=== PATIENT | male | born 1945 | race Caucasian/White ===

== ENCOUNTER 2016-11-28 13:08 | Inpatient (IN) | payer MEDICARE ==
[2016-11-28] MEDS ORDERED: NS 0.9% 1000 ML* 1,000 ML IV ONE ×3 (13:17→14:28)
[2016-11-28] MEDS ORDERED: Ondansetron INJ* 2 MG/ML VIAL IV ONE (13:27)
[2016-11-28 13:37] LABS: Hematocrit 43 % (42-52); Hemoglobin 14.7 g/dl (14.0-18.0); Mean Corpuscular HGB Conc 34 g/dl (31-36); Mean Corpuscular Hemoglobin 32 pg (27-31); Mean Corpuscular Volume 94 fL (80-94); Mean Platelet Volume 8 um3 (7.4-10.4); Red Blood Count 4.57 10^6/ul (4.0-5.4); Red Cell Distribution Width 13 % (10.5-15); White Blood Count 1.9 10^3/ul (3.5-10.8)
--- NOTE | 2016-11-28 13:39 | RAD ---
HISTORY: Cough, abdominal pain COMPARISONS: None VIEWS:1: Single frontal portable view of the chest at 1:25 PM FINDINGS: LINES AND TUBES: None. CARDIOMEDIASTINAL SILHOUETTE: The cardiomediastinal silhouette is normal for portable technique. PLEURA: The costophrenic angles are sharp. No pleural abnormalities are noted. LUNG PARENCHYMA: The lungs are clear. ABDOMEN: The upper abdomen is clear. There is no subphrenic gas. BONES AND SOFT TISSUES: No bone or soft tissue abnormalities are noted. IMPRESSION: NO ACTIVE CARDIOPULMONARY DISEASE.
[2016-11-28 13:40] LABS: Add Diff/Slide Review? Slide Review Added; Comments Flag Yes
[2016-11-28 14:13] LABS: Troponin I 0.06 ng/mL (<0.04)
[2016-11-28 14:18] LABS: C Reactive Protein 101.81 mg/L (< 5.00); Calcium 9.3 mg/dL (8.6-10.3); EGFR African American 44.4 (>60); EGFR Non-African American 34.5 (>60); Globulin 2.4 g/dL (2-4); Total Bilirubin 4.4 mg/dL (0.2-1.0); Total Protein 6.4 g/dL (6.4-8.9)
[2016-11-28 14:22] LABS: Potassium 2.7 mmol/L (3.5-5.0)
[2016-11-28 14:23] LABS: Urine Bacteria Absent (Absent); Urine Bilirubin Negative (Negative); Urine Glucose Negative (Negative); Urine Nitrite Negative (Negative)
[2016-11-28] MEDS ORDERED: Ketorolac INJ* 30 MG/ML 1 ML VIAL IV ONE (15:00)
[2016-11-28] MEDS: KCL 20 MEQ/100 ML IVPREMIX* 20 MEQ/100 ML BAG IV SCH ×4 (15:01→20:56)
--- NOTE | 2016-11-28 15:10 | RAD ---
HISTORY: Cholangitis COMPARISONS: None TECHNIQUE: Multiple transverse and longitudinal ultrasound images were obtained of the right upper quadrant of the abdomen using grayscale and color Doppler imaging. FINDINGS: LIVER: The liver is normal in shape, size, contour, and echogenicity. There are no focal parenchymal masses. There is normal hepatopedal flow of the portal vein on Doppler imaging. BILIARY TREE: There is no intrahepatic or extrahepatic biliary dilatation. The common duct measures 0.7 cm. GALLBLADDER: There is sludge noted within the gallbladder. There is no pericholecystic fluid or sonographic Perla sign. PANCREAS: The pancreas is obscured by overlying bowel gas. RIGHT KIDNEY: There are multiple simple and septated cysts of the right kidney There is no appreciable hydronephrosis or nephrolithiasis. The right kidney measures 13.9 x 6.7 x 9.6 cm. AORTA AND IVC: The aorta and IVC are unremarkable. FLUID: There are no pleural effusions. There is no free fluid within the hepatorenal recess. OTHER FINDINGS: None. IMPRESSION: SLUDGE IS NOTED WITHIN THE GALLBLADDER. MULTIPLE RENAL CYSTS
--- NOTE | 2016-11-28 15:56 | RAD ---
CLINICAL HISTORY: Rule out cholangitis COMPARISON: Ultrasound dated November 28, 2016 TECHNIQUE: Multiple contiguous axial CT scans were obtained of the abdomen and pelvis, without intravenous contrast enhancement. Coronal and sagittal multiplanar reformations are submitted for review. Oral contrast was not administered. FINDINGS: The study is limited by the lack of intravenous contrast. This limits evaluation of the solid organs and vasculature. LUNG BASES: There are trace bilateral pleural effusions. LIVER: The liver is normal in shape, size, contour, and attenuation. BILE DUCTS: There is no intrahepatic or extrahepatic biliary dilatation. GALLBLADDER: The gallbladder is normal, without pericholecystic inflammatory change. PANCREAS: There is stranding of the peripancreatic fat with mild edema of the pancreatic head SPLEEN: Normal in size and appearance. UPPER GI TRACT: Evaluation of the gastrointestinal tract is limited by incomplete gastric distention. The upper GI tract is unremarkable. SMALL BOWEL AND MESENTERY: The small bowel is normal in contour, course, and caliber. There is no obstruction or dilatation. COLON: The colon is normal in contour, course, caliber. There is no pericolonic inflammatory change. ADRENALS: Normal bilaterally. KIDNEYS: There are multiple simple and septated cysts of the kidneys bilaterally, including calcified septations. There is a 0.4 cm calculus of lower pole of the right kidney. There is no appreciable hydronephrosis. BLADDER: The bladder is incompletely distended. A Fagan catheter is noted. PELVIC ORGANS: The prostate gland is normal. The seminal vesicles are symmetric. AORTA: There is calcific atherosclerotic disease of the abdominal aorta and its branches, without aneurysmal dilatation IVC: Unremarkable LYMPH NODES: There is no lymphadenopathy by size criteria. ABDOMINAL WALL: There is no evidence for abdominal wall hernia. BONES AND SOFT TISSUES: There are mild diffuse degenerative changes. OTHER: None IMPRESSION: 1. PERIPANCREATIC INFLAMMATORY CHANGE SUGGESTIVE OF EARLY PANCREATITIS IN THE CORRECT CLINICAL SETTING. 2. TRACE BILATERAL PLEURAL EFFUSIONS. 3. MULTIPLE SIMPLE AND SEPTATED RENAL CYSTS. RECOMMEND FURTHER EVALUATION WITH MULTIPHASE CONTRAST-ENHANCED RENAL PROTOCOL CT OR CONTRAST ENHANCED MRI IN THE NONACUTE SETTING. 4. NONOBSTRUCTING RIGHT RENAL CALYCEAL STONE
--- NOTE | 2016-11-28 16:53 | ED ---
Paolo Alatorre Auryana, scribed for Leonardo Amor MD on 11/28/16 at 1337 . Abdominal Pain/Male - HPI Summary HPI Summary: 71 year old male presents with abdominal pain starting last night and syncopal episode today. The pain is located in the LLQ that radiates to the back. The pain is characterized a a sharp pain. Patient reports fever, chills, diaphoresis , and nausea - patient vomited on arrival. also reports couldn't walk last night due to the pain. He denies cough, dysuria and burning with urination. Reports last BM - yesterday. Food aggravates the pain. PMHx is significant for HLD, hiatal hernia, HTN, GERD, and appendectomy. SHx is significant for alcohol use (daily), but denies any tobacco or recreational drug use. - History of Current Complaint Chief Complaint: EDSyncope Stated Complaint: ABD PAIN Time Seen by Provider: 11/28/16 13:17 Hx Obtained From: Patient, Family/Patternator - Hx From Patient Unobtainable Due To: Other Onset/Duration: Gradual Onset, Lasting Days - 1, Still Present Timing: Constant Severity Initially: Mild Severity Currently: Mild Pain Intensity: 2 Pain Scale Used: 0-10 Numeric Location: Diffuse Radiates: Yes Radiates to: Back Character: Sharp Aggravating Factor(s): Movement Associated Signs And Symptoms: Positive: Diaphoresis, Fever, Back Pain, Nausea, Vomiting. Negative: Cough, Urinary Symptoms - Allergies/Home Medications Allergies/Adverse Reactions: Allergies Allergy/AdvReac Type Severity Reaction Status Date / Time No Known Allergies Allergy Verified 11/28/16 13:25 Home Medications: Home Medications Amlodipine Besylate [Norvasc 5 mg tab] 5 mg PO DAILY 11/28/16 [History Confirmed 11/28/16] Arginine [[id number]] 1,000 mg PO BID 11/28/16 [History Confirmed 11/28/16] Aspirin [Aspirin 81 MG TAB] 81 mg PO DAILY 11/28/16 [History Confirmed 11/28/16] Atorvastatin* [Lipitor 80 MG*] 80 mg PO DAILY 11/28/16 [History Confirmed ] Benazepril HCl [Lotensin] 10 mg PO DAILY 11/28/16 [History Confirmed 11/28/16] Calcium 1,000 mg PO BID 11/28/16 [History Confirmed 11/28/16] Coenzyme Q10 (Ubidecarenone) [Coq-10] 200 mg PO BID 11/28/16 [History Confirmed 11/28/16] Cyanocobalamin [B-12] 2,000 units PO DAILY 11/28/16 [History Confirmed 11/28/16] Metoprolol Tartrate TAB* [Lopressor TAB*] 200 mg PO DAILY 11/28/16 [History Confirmed 11/28/16] Omeprazole CAP* [Prilosec CAP* 20 MG] 20 mg PO DAILY 11/28/16 [History Confirmed 11/28/16] PMH/Surg Hx/FS Hx/Imm Hx Cardiovascular History: Reports: Hx Hypercholesterolemia, Hx Hypertension GI History: Reports: Hx Gastroesophageal Reflux Disease, Hx Hiatal Hernia - Surgical History Surgery Procedure, Year, and Place: Appendectomy Infectious Disease History: No Infectious Disease History: Denies: Traveled Outside the [place] in Last 30 Days - Family History Known Family History: Positive: Hypertension, Other - aneurysm - aorta (father @ age 72), HLD, [place] Negative: Cardiac Disease, Diabetes - Social History Occupation: Retired Lives: With Family Alcohol Use: Daily Hx Substance Use: No Substance Use Type: Reports: None Hx Tobacco Use: No Smoking Status (MU): Never Smoked Tobacco Review of Systems Positive: Fever, Chills, Skin Diaphoresis Eyes: Negative ENT: Negative Cardiovascular: Negative Respiratory: Negative Negative: Cough Positive: Abdominal Pain - radiating to the back , Vomiting - on arrival to ED, Nausea Genitourinary: Negative Positive: no symptoms reported. Negative: burning, dysuria Musculoskeletal: Negative Skin: Negative Neurological: Negative Psychological: Normal All Other Systems Reviewed And Are Negative: Yes Physical Exam - Summary Physical Exam Summary: Well-appearing, no pain distress Warm, color reflects adequate perfusion, diaphoresis; patient is warm to touch. Nml head/face Nml eyes Nml ENT Neck: Supple, non-tender Cardiovascular: RRR Abd soft, 9/10 left sided abdominal tenderness without bruits Bowel sounds + Nml musculoskeletal Nml neuro, a little slow with mentation. Nml psychiatric, affect/mood appropriate Triage Information Reviewed: Yes Vital Signs On Initial Exam: Initial Vitals Temp Pulse Resp BP Pulse Ox 100.0 F 62 14 148/68 94 11/28/16 13:11 11/28/16 13:11 11/28/16 13:11 11/28/16 13:11 11/28/16 13:11 Vital Signs Reviewed: Yes Diagnostics - Vital Signs Vital Signs Temp Pulse Resp BP Pulse Ox 11/28/16 13:19 95 11/28/16 13:14 100.0 F 102 22 148/68 95 11/28/16 13:11 100.0 F 62 14 148/68 94 - Laboratory Lab Results: Lab Results 11/28/16 11/28/16 11/28/16 Range/Units 13:15 13:15 13:15 WBC 1.9 L (3.5-10.8) 10^3/ul RBC 4.57 (4.0-5.4) 10^6/ul Hgb 14.7 (14.0-18.0) g/dl Hct 43 (42-52) % MCV 94 (80-94) fL MCH 32 H (27-31) pg MCHC 34 (31-36) g/dl RDW 13 (10.5-15) % Plt Count 134 L (150-450) 10^3/ul MPV 8 (7.4-10.4) um3 Neut % (Auto) 81.8 (38-83) % Lymph % (Auto) 17.2 L (25-47) % [place] % (Auto) 0.5 L (1-9) % Eos % (Auto) 0.2 (0-6) % Baso % (Auto) 0.3 (0-2) % Absolute Neuts (auto) 1.6 (1.5-7.7) 10^3/ul Absolute Lymphs (auto) 0.3 L (1.0-4.8) 10^3/ul Absolute Monos (auto) 0 (0-0.8) 10^3/ul Absolute Eos (auto) 0 (0-0.6) 10^3/ul Absolute Basos (auto) 0 (0-0.2) 10^3/ul Absolute Nucleated RBC 0 10^3/ul Nucleated RBC % 0.1 INR (Anticoag Therapy) 1.14 H (0.89-1.11) Sodium 141 (133-145) mmol/L Potassium 2.7 L* (3.5-5.0) mmol/L Chloride 109 (101-111) mmol/L Carbon Dioxide 21 L (22-32) mmol/L Anion Gap 11 (2-11) mmol/L BUN 27 H (6-24) mg/dL Creatinine 1.93 H (0.67-1.17) mg/dL Est GFR ( Amer) 44.4 (>60) Est GFR (Non-Af Amer) 34.5 (>60) BUN/Creatinine Ratio 14.0 (8-20) Glucose 151 H (70-100) mg/dL Lactic Acid (0.5-2.0) mmol/L Calcium 9.3 (8.6-10.3) mg/dL Total Bilirubin 4.40 H (0.2-1.0) mg/dL AST 304 H (13-39) U/L ALT 377 H (7-52) U/L Alkaline Phosphatase 159 H (34-104) U/L Troponin I 0.06 H* (<0.04) ng/mL C-Reactive Protein 101.81 H (< 5.00) mg/L Total Protein 6.4 (6.4-8.9) g/dL Albumin 4.0 (3.2-5.2) g/dL Globulin 2.4 (2-4) g/dL Albumin/Globulin Ratio 1.7 (1-3) Lipase 9671 H (11.0-82.0) U/L Urine Color Urine Appearance Urine pH (5-9) Ur Specific [place] (1.010-1.030) Urine Protein (Negative) Urine Ketones (Negative) Urine Blood (Negative) Urine Nitrate (Negative) Urine Bilirubin (Negative) Urine Urobilinogen (Negative) Ur Leukocyte Esterase (Negative) Urine WBC (Auto) (Absent) Urine RBC (Auto) (Absent) Urine Bacteria (Absent) Granular Casts (Absent) Urine Glucose (Negative) 11/28/16 11/28/16 11/28/16 Range/Units 13:15 13:55 15:29 WBC (3.5-10.8) 10^3/ul RBC (4.0-5.4) 10^6/ul Hgb (14.0-18.0) g/dl Hct (42-52) % MCV (80-94) fL MCH (27-31) pg MCHC (31-36) g/dl RDW (10.5-15) % Plt Count (150-450) 10^3/ul MPV (7.4-10.4) um3 Neut % (Auto) (38-83) % Lymph % (Auto) (25-47) % [place] % (Auto) (1-9) % Eos % (Auto) (0-6) % Baso % (Auto) (0-2) % Absolute Neuts (auto) (1.5-7.7) 10^3/ul Absolute Lymphs (auto) (1.0-4.8) 10^3/ul Absolute Monos (auto) (0-0.8) 10^3/ul Absolute Eos (auto) (0-0.6) 10^3/ul Absolute Basos (auto) (0-0.2) 10^3/ul Absolute Nucleated RBC 10^3/ul Nucleated RBC % INR (Anticoag Therapy) (0.89-1.11) Sodium (133-145) mmol/L Potassium (3.5-5.0) mmol/L Chloride (101-111) mmol/L Carbon Dioxide (22-32) mmol/L Anion Gap (2-11) mmol/L BUN (6-24) mg/dL Creatinine (0.67-1.17) mg/dL Est GFR ( Amer) (>60) Est GFR (Non-Af Amer) (>60) BUN/Creatinine Ratio (8-20) Glucose (70-100) mg/dL Lactic Acid 3.2 H* 3.1 H* (0.5-2.0) mmol/L Calcium (8.6-10.3) mg/dL Total Bilirubin (0.2-1.0) mg/dL AST (13-39) U/L ALT (7-52) U/L Alkaline Phosphatase (34-104) U/L Troponin I (<0.04) ng/mL C-Reactive Protein (< 5.00) mg/L Total Protein (6.4-8.9) g/dL Albumin (3.2-5.2) g/dL Globulin (2-4) g/dL Albumin/Globulin Ratio (1-3) Lipase (11.0-82.0) U/L Urine Color [place] Urine Appearance Cloudy Urine pH 5.0 (5-9) Ur Specific [place] 1.010 (1.010-1.030) Urine Protein 1+(30 mg/dl) H (Negative) Urine Ketones Negative (Negative) Urine Blood 2+ H (Negative) Urine Nitrate Negative (Negative) Urine Bilirubin Negative (Negative) Urine Urobilinogen Negative (Negative) Ur Leukocyte Esterase Negative (Negative) Urine WBC (Auto) Absent (Absent) Urine RBC (Auto) 1+(3-5/hpf) H (Absent) Urine Bacteria Absent (Absent) Granular Casts Present H (Absent) Urine Glucose Negative (Negative) Result Diagrams: 11/28/16 13:15 11/28/16 13:15 Lab Statement: Any lab studies that have been ordered have been reviewed, and results considered in the medical decision making process. - Radiology CXR Xray Interpretation: No Acute Changes - NAD Radiology Interpretation Completed By: Radiologist - CT CT ABD/PEL W/O CT Interpretation: Positive (See Comments) - IMPRESSION: 1. PERIPANCREATIC INFLAMMATORY CHANGE SUGGESTIVE OF EARLY PANCREATITIS IN THE CORRECT CLINICAL SETTING. 2. TRACE BILATERAL PLEURAL EFFUSIONS. 3. MULTIPLE SIMPLE AND SEPTATED RENAL CYSTS. RECOMMEND FURTHER EVALUATION WITH MULTIPHASE 4. NONOBSTRUCTING RIGHT RENAL CALYCEAL STONE CT Interpretation Completed By: Radiologist - EKG 13:12 EKG Interpretation: Sinus Tachy @ 107 BPM, with a few ST depression and PACs - Additional Comments Diagnostic Additional Comments: US GALL BLADDER IMPRESSION: SLUDGE IS NOTED WITHIN THE GALLBLADDER. MULTIPLE RENAL CYSTS Abdominal Pain Fem Course/Dx - Course Course Of Treatment: Mr. Diggs arrived by EMS afebrile (100) with borderline tachycardia after a syncopale episode. He was diaphoretic and mentating slowly. He was equivical about having abdominal and back pain sometimes saying he did and at others denying them. He was given IV fluids while labs and imaging were obtained. He quickly spiked up a fever here and he reported fevers at home for a day or so. His labs returned with a severe sepsis type picture as well as looking like an acute cholangitis and he was ordered zosyn and a GB U/S which was remarkable only for a slightly dilated CBD.. His lipase then returned at 9000. At that point the hospitalists were managing hium and obtained a CT scan. - Diagnoses Provider Diagnoses: Cholangitis, Septic shock, Pancreatitis - Provider Notifications Discussed Care Of Patient With: Jamey Herminia Time Discussed With Above Provider: 14:32 - consulted on treatment here in ED - Critical Care Time Critical Care Time: 30-74 min Discharge - Discharge Plan Condition: Stable Disposition: ADMITTED TO [facility] Referrals: Gino Meredith MD [Primary Care Provider] - The documentation as recorded by the Paolo cazares Auryana accurately reflects the service I personally performed and the decisions made by me, Leonardo Amor MD.
[2016-11-28] MEDS ORDERED: Zosyn per Pharmacy* NOTE FOLLOW UP SCH (17:00)
--- NOTE | 2016-11-28 17:15 | RAD ---
HISTORY: Central line placement COMPARISONS: November 28, 2016 VIEWS:1: Single frontal portable view of the chest at 4:55 PM FINDINGS: LINES AND TUBES: The left internal jugular venous catheter is noted with the tip overlying the expected location of the confluence of the brachiocephalic vein and the superior vena cava CARDIOMEDIASTINAL SILHOUETTE: The cardiomediastinal silhouette is normal for portable technique. PLEURA: The costophrenic angles are sharp. No pleural abnormalities are noted. LUNG PARENCHYMA: The lung volumes are low. There is prominence of the central pulmonary vasculature. ABDOMEN: The upper abdomen is clear. There is no subphrenic gas. BONES AND SOFT TISSUES: No bone or soft tissue abnormalities are noted. IMPRESSION: LINES AND TUBES ABOVE. PULMONARY VASCULAR CONGESTION.
[2016-11-28] MEDS ORDERED: Norepinephrine 16MCG/ML IVPRE* 4,000 MCG/250 ML BAG IV ONE (17:20)
[2016-11-28 17:41] LABS: Venous Bicarbonate HCO3 16.5 mmol/L (24-28)
--- NOTE | 2016-11-28 18:05 | PN ---
Progress Note - Progress Note Date of Service: 11/28/16 Note: Procedure note Emergent left IJ CVC placement Verbal consent obtained from at bedside Site marked with US assistance Cleaned with chlorhexadine Draped in sterile manner 5cc lidocaine used to numb the site Using US guidance left IJ canulated and triple lumen placed over the wire. Location of wire confirmed with US Location confirmed with CXR No complications
[2016-11-28] MEDS ORDERED: NS 0.9% 1000 ML* 2,000 ML IV ONE (19:00)
[2016-11-28] MEDS: NS 0.9% 1000 ML* 1,000 ML IV SCH ×2 (19:29→22:48)
[2016-11-28] MEDS: Hydrocortisone INJ* 100 MG VIAL IV SCH (19:30)
[2016-11-28] MEDS: ZOSYN 3.375 GM Q8H per EXTENDED INFUSION IVPB SCH ×2 (20:00)
[2016-11-28] MEDS: Norepinephrine 16MCG/ML IVPRE* 4,000 MCG/250 ML BAG IV SCH (21:50)
--- NOTE | 2016-11-28 21:59 | HP ---
ADDENDUM: * ADMISSION HISTORY AND PHYSICAL: DATE OF ADMISSION: 11/28/16 Discussed care with slab depiler operator Dr. Hope as well as surgeon Dr. Rodríguez. Added addition of hydrocortisone 100 mg every 8 hours per discussion with Dr. Hope. After discussion with Dr. Rodríguez, she denies and I feel there is surgical intervention warranted at this time. No need for percutaneous drainage of the biliary system in the absence of dilated common biliary duct. A repeat CT of the abdomen and pelvis will be useful with contrast. Lab work as indicated. An H and P is not capable at this time until some improvement in his renal function. [id number]/[facility] #: [id number] MTDD
[2016-11-28] MEDS: Heparin VIAL(*) 5000 UNITS/ML VIAL (FIVE THOUSAND) SUBCUT SCH (22:00)
--- NOTE | 2016-11-28 23:13 | HP ---
ADDENDUM NOW INCLUDED ON THIS REPORT HISTORY AND PHYSICAL: DATE OF ADMISSION: 11/28/16 PRIMARY CARE PROVIDER: Dr. Gino Meredith in [place], [place]. HEALTHCARE PROXY: His . CODE STATUS: Full SOURCE OF INFORMATION: History obtained from interview with patient and mostly his . RELIABILITY: Good. CHIEF COMPLAINT: Abdominal pain. HISTORY OF PRESENT ILLNESS: This is a 71-year-old man with past medical history of CAD, unclear if he has received a stent, possibly stenting 12 years prior, who was in his usual state of health until yesterday morning, suddenly developed abdominal pain that was described as both burning and aching, radiating to his back. Throughout the day, the pain came and went, but progressively got worse. By the end of the day, he ate some watermelon, had some nausea, vomiting, and then felt better. Pain continued overnight and this morning the pain was worse and again with nausea, vomiting, and so his encouraged him to present to the hospital. On presentation to the emergency room, his blood pressure was 148/68. He was still complaining of abdominal pain radiating to his back. The hospitalists service was consulted for admission. During interview with the patient and his , the blood pressure was noted to be declining to systolics 80s despite continued continued fluid administration. After 5 liters of fluid, the patient's blood pressure remained in the 70s and he became confused during our conversation. The conversation was terminated and an emergent central line was placed in his left IJ with verbal consent from his . He received 8 liters of fluid and was transferred to the ICU, where his blood pressures remained in the 70s and Levophed was started. The patient is a steady 2 drink a day (beer or wine) drinker without escalation but does relay that on November 23 he drank much more than usual (1 bottle of wine and maybe 1-2 beers) so much so that he "took the day off" November 24. He denies any recent symptoms of abdominal pain prior to this episode. PAST MEDICAL HISTORY: 1. CAD, question of stenting 12 years prior. The patient reports he did not have a stent, reported that she thought he had a stent. 2. Hypertension. 3. Hyperlipidemia. 4. FAMIILA, on CPAP. 5. Hiatal hernia. 6. Appendectomy. MEDICATION RECONCILIATION: In the computer is correct: 1. Atorvastatin 80 mg daily. 2. Aspirin 81 mg daily. 3. Arginine 1000 mg twice daily. 4. Amlodipine 5 mg daily. 5. Co-enzyme Q10 200 mg twice daily. 6. Calcium 1000 mg twice daily. 7. Benazepril 10 mg daily. 8. Omeprazole 20 mg daily. 9. Metoprolol tartrate 200 mg daily. 10. Cyanocobalamin. 11. Vitamin B12 2000 units daily. ALLERGIES: No known drug allergies. FAMILY HISTORY: No history of pancreatitis. Mother with brain cancer. Father with an aortic aneurysm. SOCIAL HISTORY: He lives in [place]. 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 No history of tobacco. Two drinks a day, but did not drink more recently. He drinks consistently. REVIEW OF SYSTEMS: As per HPI including abdominal pain, nausea, vomiting since yesterday. PHYSICAL EXAMINATION VITAL SIGNS: When seen by this author 83/54, heart rate of 102, respiratory rate of 16, T-max in the emergency room 102.7. gen: nad, lethargic HEENT: OP clear, dry mm Neck: non elevated JVD, no CHRISTIAN CV: tachy, no mrg pulm: CTAB abd: soft, patient does not indicate tenderness but is increasingly lethargic during exam ext: warm, well perfused, poor cap refill neuro: originally AOX3 but increasingly lethargic LABORATORY DATA AND DIAGNOSTIC STUDIES: Pertinent Labs: White blood cell count 1.9, 81% neutrophils, INR is 1.14, potassium 2.7, BUN 27, creatinine 1.94 , glucose 151, lactic acid 3.2, remained 3.1 after 2 liter bolus, total bilirubin of 4.4, unfractionated AST 304, ALT 377, alk phos 159, troponin I 0.06 , CRP 101, lipase 967. Urinalysis is positive for blood and granular casts. Gallbladder ultrasound - sludge is noted within the gallbladder, multiple renal cysts. CT of the abdomen and pelvis without contrast due to the patient's renal insufficiency and inability to tolerate p.o. - Impression: Peripancreatic inflammatory changes suggestive of early pancreatitis in the correct clinical setting. Trace bilateral pleural effusions. Multiple simple and septated renal cysts. Recommend followup multiphase contrast, enhanced renal protocol CT or contrast-enhanced MRI in the non-acute setting. Non- obstructing right renal calyceal stone. EKG on presentation - sinus tachycardia with PACs, ventricular rate 107, normal limit axis and intervals, normal R-wave progression, ST or T-wave inversions V4 through V6, leads I, II, III and aVL, T waves, ST depression in V4, V5 and V6, as well as lead I. Repeat EKG 4 hours later - sinus tachycardia, ventricular rate of 98, normal limit axis, T-wave inversions in V2 and V3, have corrected ST depressions continue V3, V4, V5, V6 and lead II. ASSESSMENT AND PLAN: This is a 71-year-old man with past medical history of obstructive sleep apnea and coronary artery disease, presenting to the hospital with abdominal pain, laboratory and imaging evidence concerning for pancreatitis. 1. Shock acute, distributive, potentially component of septic. Early pancreatitis, status post 8 liters with maps in the 50s requiring Levophed. Could be component of cholangitis/septic shock. We will continue Zosyn until blood cultures remain negative. Repeat LFTs tomorrow. Monitor bilirubin with fractionated portion. Continue to trend lactic acid until stable and declining. Continue fluids at 300 cc per hour in conjunction with Levophed, monitor urine output. 2. Hhb-XQ-ensqqxes myocardial infarction: I suspect type 2 demand mediated in the setting of hypotension. We will trend troponins now. Plan for transthoracic echocardiogram when available tomorrow. Continue baby aspirin, hold metoprolol. 3. Kidney dysfunction or acute kidney failure: No prior records to compare current values to. There is fluid hydration. Casts noted in urinalysis, concerning for ATN. 4. Hypokalemia: Receiving IV potassium repletion. Recheck BMP this evening. 5. Transaminitis: Suspect in the setting of pancreatitis; however, the patient may have passed the stone or this may represent continued cholangitis. Antibiotics as indicated above, recheck tomorrow. 6. Obstructive sleep apnea: Continue with CPAP while hospitalized. 7. Pancreatitis: Suspect contributing to shock. Maintain n.p.o. Pain control with morphine, vigorous hydration. I discussed potential need for intubation with the patient's , she agrees should volume resuscitate, mechanical support. 8. DVT prophylaxis, heparin subcu. 9. Code status is full. ADDENDUM: ADMISSION HISTORY AND PHYSICAL: DATE OF ADMISSION: 11/28/16 Discussed care with stereotype finisher Dr. Hope as well as surgeon Dr. Rodríguez. Added addition of hydrocortisone 100 mg every 8 hours per discussion with Dr. Hope. After discussion with Dr. Rodríguez, she denies and I feel there is surgical intervention warranted at this time. No need for percutaneous drainage of the biliary system in the absence of dilated common biliary duct. A repeat CT of the abdomen and pelvis will be useful with contrast. Lab work as indicated. An H and P is not capable at this time until some improvement in his renal function. [id number]/[facility] #: [id number]/[facility] #: [id number] MTDD
[2016-11-28 23:36] LABS: BUN/Creatinine Ratio 14.8 (8-20); Calcium 6.7 mg/dL (8.6-10.3); EGFR African American 43.6 (>60); EGFR Non-African American 33.9 (>60); Potassium 3.6 mmol/L (3.5-5.0)
[2016-11-29] MEDS: Norepinephrine 16MCG/ML IVPRE* 4,000 MCG/250 ML BAG IV SCH ×5 (01:58→17:32)
[2016-11-29] MEDS: NS 0.9% 1000 ML* 1,000 ML IV SCH ×2 (01:59→05:41)
[2016-11-29] MEDS: Hydrocortisone INJ* 100 MG VIAL IV SCH ×3 (03:13→19:57)
[2016-11-29] MEDS: ZOSYN 3.375 GM Q8H per EXTENDED INFUSION IVPB SCH ×6 (03:57→19:58)
[2016-11-29] MEDS: Morphine INJ* 2 MG/ML 1 ML SYRINGE IV PRN ×4 (05:08→21:14)
[2016-11-29 05:23] LABS: Hematocrit 37 % (42-52); Hemoglobin 12.3 g/dl (14.0-18.0); Mean Corpuscular HGB Conc 33 g/dl (31-36); Mean Corpuscular Hemoglobin 32 pg (27-31); Mean Corpuscular Volume 96 fL (80-94); Mean Platelet Volume 8 um3 (7.4-10.4); Red Blood Count 3.88 10^6/ul (4.0-5.4); Red Cell Distribution Width 14 % (10.5-15)
[2016-11-29 05:25] LABS: Add Diff/Slide Review? Slide Review Added; Albumin 2.8 g/dL (3.2-5.2); BUN/Creatinine Ratio 14.3 (8-20); Calcium 6.6 mg/dL (8.6-10.3); Comments Flag Yes; Direct Bilirubin 3.9 mg/dL (0.03-0.18); EGFR African American 37.5 (>60); EGFR Non-African American 29.2 (>60); Globulin 1.8 g/dL (2-4); Indirect Bilirubin 1.5 mg/dL (0.3-1.0); Potassium 3.4 mmol/L (3.5-5.0); Total Bilirubin 5.4 mg/dL (0.2-1.0); Total Protein 4.6 g/dL (6.4-8.9)
[2016-11-29 05:37] LABS: Troponin I 0.44 ng/mL (<0.04)
[2016-11-29] MEDS: Heparin VIAL(*) 5000 UNITS/ML VIAL (FIVE THOUSAND) SUBCUT SCH ×3 (05:40→21:14)
[2016-11-29 06:21] LABS: Immature Granulocytes 17 % (0-9); Neutrophil % 76 % (38-83)
[2016-11-29 06:22] LABS: RBC Morphology Normal (Normal)
[2016-11-29] MEDS ORDERED: Perflutren Lipid Microsphere* 3 ML VIAL ONE (08:02)
[2016-11-29] MEDS: Aspirin EC Low Dose* 81 MG TAB.EC PO SCH (08:52)
[2016-11-29] MEDS: Omeprazole CAP* 20 MG PO SCH (08:52)
[2016-11-29] MEDS: KCL 20 MEQ/100 ML IVPREMIX* 20 MEQ/100 ML BAG IV SCH ×2 (08:56→11:35)
--- NOTE | 2016-11-29 08:58 | PN ---
Subjective Date of Service: 11/29/16 Interval History: Seen this AM Remains on 15ml/hr of levophed UOP 200 cc overnight Mental status more alert today Pain epigastric continues but now notes in RUQ as well Objective Active Medications: Aspirin (Aspirin Ec Low Dose*) 81 mg PO DAILY [facility] Heparin Sodium (Porcine) (Heparin Vial(*)) 5,000 units SUBCUT Q8HR [facility] Last Admin: 11/29/16 05:40 Dose: 5,000 units Hydrocortisone Sodium Succinate (Solu-Cortef*) 100 mg IV Q8H [facility] Last Admin: 11/29/16 03:13 Dose: 100 mg Piperacillin Sod/Tazobactam (Sod 3.375 gm/ Sodium Chloride) 100 mls @ 25 mls/ hr IVPB Q8H [facility] Last Admin: 11/29/16 03:57 Dose: 25 mls/hr Norepinephrine Bitartrate (Levophed 16 Mcg/Ml Premix Bag*) 4,000 mcg in 250 mls @ 18.75 mls/hr IV .INITIAL RATE [facility] PRN Reason: 5 MCG/MIN Last Admin: 11/29/16 05:41 Dose: 18.75 mls/hr Lactated Ringer's (Lactated Ringers 1000 Ml Bag*) 1,000 mls @ 300 mls/hr IV PER RATE [facility] Last Admin: 11/29/16 08:42 Dose: 300 mls/hr Potassium Chloride (Potassium Chloride 20 Meq/100 Ml Ivpremix*) 20 meq in 100 mls @ 50 mls/hr IV Q2H [facility] Stop: 11/29/16 12:59 Morphine Sulfate (Morphine Inj (Syringe)*) 2 mg IV Q4H PRN PRN Reason: PAIN Last Admin: 11/29/16 05:08 Dose: 2 mg Omeprazole (Prilosec Cap*) 20 mg PO DAILY [facility] Pharmacy Consult (Zosyn Per Pharmacy*) 1 note FOLLOW UP .ZOSYN PER PHARMACY [facility] Vital Signs 11/28/16 11/28/16 11/28/16 15:30 15:32 15:33 Temperature 101.8 F 101.8 F Pulse Rate 104 103 Respiratory Rate Blood Pressure 74/41 94/54 (mmHg) O2 Sat by Pulse 97 97 Oximetry 11/28/16 11/28/16 11/28/16 15:45 15:49 16:00 Temperature 101.5 F 101.3 F 100.9 F Pulse Rate 103 104 93 Respiratory Rate Blood Pressure 84/53 83/54 80/50 (mmHg) O2 Sat by Pulse 95 97 96 Oximetry 11/28/16 11/28/16 11/28/16 16:02 16:30 17:00 Temperature 100.9 F 99.7 F 99.3 F Pulse Rate 92 89 92 Respiratory Rate Blood Pressure 78/49 78/50 83/51 (mmHg) O2 Sat by Pulse 97 98 98 Oximetry 11/28/16 11/28/16 11/28/16 17:03 17:15 17:16 Temperature 99.1 F 99.0 F 97.2 F Pulse Rate 90 90 88 Respiratory 16 24 Rate Blood Pressure 83/51 78/50 78/50 (mmHg) O2 Sat by Pulse 95 95 Oximetry 11/28/16 11/28/16 11/28/16 17:29 17:30 17:40 Temperature Pulse Rate 100 98 98 Respiratory 21 21 21 Rate Blood Pressure 77/52 82/53 81/55 (mmHg) O2 Sat by Pulse 94 94 95 Oximetry 11/28/16 11/28/16 11/28/16 17:45 17:54 18:00 Temperature 209.8 F 98.8 F 98.8 F Pulse Rate 87 87 94 Respiratory 20 18 20 Rate Blood Pressure 77/53 81/51 83/55 (mmHg) O2 Sat by Pulse 95 95 95 Oximetry 11/28/16 11/28/16 11/28/16 18:12 18:15 18:30 Temperature 98.7 F 98.7 F 98.6 F Pulse Rate 88 87 88 Respiratory 20 18 18 Rate Blood Pressure 88/58 85/60 92/58 (mmHg) O2 Sat by Pulse 94 93 94 Oximetry 11/28/16 11/28/16 11/28/16 18:45 19:00 19:15 Temperature 98.5 F 98.4 F 98.3 F Pulse Rate 87 87 85 Respiratory 22 17 19 Rate Blood Pressure 88/60 78/56 81/53 (mmHg) O2 Sat by Pulse 94 95 95 Oximetry 11/28/16 11/28/16 11/28/16 19:30 19:45 20:00 Temperature 98.2 F 98.1 F 98.2 F Pulse Rate 88 87 83 Respiratory 18 20 16 Rate Blood Pressure 82/52 88/60 83/59 (mmHg) O2 Sat by Pulse 94 94 94 Oximetry 11/28/16 11/28/16 11/28/16 20:15 20:30 20:32 Temperature 98.1 F 98.1 F 98.1 F Pulse Rate 85 86 85 Respiratory 16 15 21 Rate Blood Pressure 91/58 74/50 80/58 (mmHg) O2 Sat by Pulse 95 95 95 Oximetry 11/28/16 11/28/16 11/28/16 20:45 21:00 21:15 Temperature 98.1 F 98.1 F 98.1 F Pulse Rate 83 84 83 Respiratory 19 19 18 Rate Blood Pressure 88/62 87/59 90/64 (mmHg) O2 Sat by Pulse 95 96 95 Oximetry 11/28/16 11/28/16 11/28/16 21:30 21:45 22:00 Temperature 98.0 F 97.9 F Pulse Rate 83 85 Respiratory 16 15 Rate Blood Pressure 95/66 88/66 99/83 (mmHg) O2 Sat by Pulse 94 94 Oximetry 11/28/16 11/28/16 11/28/16 22:15 22:30 22:45 Temperature 97.7 F 97.6 F 97.6 F Pulse Rate 82 82 82 Respiratory 18 15 15 Rate Blood Pressure 92/66 94/63 96/67 (mmHg) O2 Sat by Pulse 94 94 95 Oximetry 11/28/16 11/28/16 11/28/16 23:00 23:09 23:15 Temperature 97.5 F 97.5 F 97.3 F Pulse Rate 84 85 82 Respiratory 16 19 17 Rate Blood Pressure 92/69 103/70 (mmHg) O2 Sat by Pulse 95 97 96 Oximetry 11/28/16 11/28/16 11/29/16 23:30 23:45 00:00 Temperature 97.3 F 97.3 F 97.3 F Pulse Rate 79 79 79 Respiratory 20 17 15 Rate Blood Pressure 103/71 102/72 (mmHg) O2 Sat by Pulse 95 96 96 Oximetry 11/29/16 11/29/16 11/29/16 00:01 00:15 00:30 Temperature 97.3 F 97.3 F 97.4 F Pulse Rate 78 85 80 Respiratory 14 16 17 Rate Blood Pressure 98/70 104/73 109/76 (mmHg) O2 Sat by Pulse 96 96 97 Oximetry 11/29/16 11/29/16 11/29/16 00:45 01:00 01:15 Temperature 97.3 F 91.1 F 97.0 F Pulse Rate 78 76 76 Respiratory 15 18 19 Rate Blood Pressure 99/71 106/78 99/70 (mmHg) O2 Sat by Pulse 97 96 97 Oximetry 11/29/16 11/29/16 11/29/16 01:30 01:45 02:00 Temperature 97.0 F 97.0 F 97.1 F Pulse Rate 74 73 76 Respiratory 17 16 16 Rate Blood Pressure 98/72 101/72 103/72 (mmHg) O2 Sat by Pulse 97 98 97 Oximetry 11/29/16 11/29/16 11/29/16 02:15 02:30 02:51 Temperature 97.4 F 97.4 F 97.4 F Pulse Rate 80 82 85 Respiratory 21 20 20 Rate Blood Pressure 107/76 70/47 103/71 (mmHg) O2 Sat by Pulse 98 99 98 Oximetry 11/29/16 11/29/16 11/29/16 03:00 03:15 03:30 Temperature 97.4 F 97.5 F 97.6 F Pulse Rate 85 85 81 Respiratory 20 24 22 Rate Blood Pressure 109/79 105/74 103/76 (mmHg) O2 Sat by Pulse 99 100 100 Oximetry 11/29/16 11/29/16 11/29/16 03:45 04:00 04:15 Temperature 97.7 F 97.8 F Pulse Rate 81 79 Respiratory 21 21 Rate Blood Pressure 101/78 103/71 104/71 (mmHg) O2 Sat by Pulse 99 99 Oximetry 11/29/16 11/29/16 11/29/16 04:30 04:45 05:00 Temperature 97.9 F 97.9 F 97.9 F Pulse Rate 81 82 84 Respiratory 17 20 26 Rate Blood Pressure 101/69 102/74 101/73 (mmHg) O2 Sat by Pulse 98 98 98 Oximetry 11/29/16 11/29/16 11/29/16 05:08 05:15 05:30 Temperature 97.9 F 98.0 F Pulse Rate 83 82 Respiratory 20 23 21 Rate Blood Pressure 97/68 90/65 (mmHg) O2 Sat by Pulse 98 97 Oximetry 11/29/16 11/29/16 11/29/16 05:45 06:00 06:15 Temperature 98.0 F 98.1 F 98.1 F Pulse Rate 81 82 86 Respiratory 21 22 25 Rate Blood Pressure 93/68 93/68 94/69 (mmHg) O2 Sat by Pulse 97 98 98 Oximetry 11/29/16 11/29/16 11/29/16 06:30 06:45 07:00 Temperature 98.1 F 98.2 F 98.1 F Pulse Rate 82 85 82 Respiratory 20 22 24 Rate Blood Pressure 87/67 96/67 93/65 (mmHg) O2 Sat by Pulse 98 97 97 Oximetry 11/29/16 11/29/16 07:18 08:00 Temperature 98.1 F Pulse Rate Respiratory 22 Rate Blood Pressure (mmHg) O2 Sat by Pulse 98 96 Oximetry Oxygen Devices in Use Now: Nasal Cannula Appearance: NAD Eyes: No Scleral Icterus, PERRLA Ears/Nose/Mouth/Throat: Clear Oropharnyx, - - dry MM Neck: NL Appearance and Movements; NL JVP, Trachea Midline Respiratory: Symmetrical Chest Expansion and Respiratory Effort, Clear to Auscultation Cardiovascular: NL Sounds; No Murmurs; No JVD, RRR Abdominal: - - mildly distended, TTP greatest in epigastrum as RUQ (+rogers sign ) no rebound/guarding Extremities: - - trace LE edema Skin: No Rash or Ulcers Neurological: Alert and Oriented x 3 Result Diagrams: 11/29/16 04:55 11/29/16 04:55 Additional Lab and Data: Lab Results 11/28/16 11/28/16 11/28/16 Range/Units 13:15 13:15 13:15 WBC 1.9 L (3.5-10.8) 10^3/ul RBC 4.57 (4.0-5.4) 10^6/ul Hgb 14.7 (14.0-18.0) g/dl Hct 43 (42-52) % MCV 94 (80-94) fL MCH 32 H (27-31) pg MCHC 34 (31-36) g/dl RDW 13 (10.5-15) % Plt Count 134 L (150-450) 10^3/ul MPV 8 (7.4-10.4) um3 Neut % (Auto) 81.8 (38-83) % Lymph % (Auto) 17.2 L (25-47) % [place] % (Auto) 0.5 L (1-9) % Eos % (Auto) 0.2 (0-6) % Baso % (Auto) 0.3 (0-2) % Absolute Neuts (auto) 1.6 (1.5-7.7) 10^3/ul Absolute Lymphs (auto) 0.3 L (1.0-4.8) 10^3/ul Absolute Monos (auto) 0 (0-0.8) 10^3/ul Absolute Eos (auto) 0 (0-0.6) 10^3/ul Absolute Basos (auto) 0 (0-0.2) 10^3/ul Absolute Nucleated RBC 0 10^3/ul Nucleated RBC % 0.1 INR (Anticoag Therapy) 1.14 H (0.89-1.11) Sodium 141 (133-145) mmol/L Potassium 2.7 L* (3.5-5.0) mmol/L Chloride 109 (101-111) mmol/L Carbon Dioxide 21 L (22-32) mmol/L Anion Gap 11 (2-11) mmol/L BUN 27 H (6-24) mg/dL Creatinine 1.93 H (0.67-1.17) mg/dL Est GFR ( Amer) 44.4 (>60) Est GFR (Non-Af Amer) 34.5 (>60) BUN/Creatinine Ratio 14.0 (8-20) Glucose 151 H (70-100) mg/dL Lactic Acid (0.5-2.0) mmol/L Calcium 9.3 (8.6-10.3) mg/dL Total Bilirubin 4.40 H (0.2-1.0) mg/dL AST 304 H (13-39) U/L ALT 377 H (7-52) U/L Alkaline Phosphatase 159 H (34-104) U/L Troponin I 0.06 H* (<0.04) ng/mL C-Reactive Protein 101.81 H (< 5.00) mg/L Total Protein 6.4 (6.4-8.9) g/dL Albumin 4.0 (3.2-5.2) g/dL Globulin 2.4 (2-4) g/dL Albumin/Globulin Ratio 1.7 (1-3) Lipase 9671 H (11.0-82.0) U/L Urine Color Urine Appearance Urine pH (5-9) Ur Specific [place] (1.010-1.030) Urine Protein (Negative) Urine Ketones (Negative) Urine Blood (Negative) Urine Nitrate (Negative) Urine Bilirubin (Negative) Urine Urobilinogen (Negative) Ur Leukocyte Esterase (Negative) Urine WBC (Auto) (Absent) Urine RBC (Auto) (Absent) Urine Bacteria (Absent) Granular Casts (Absent) Urine Glucose (Negative) 11/28/16 11/28/16 11/28/16 Range/Units 13:15 13:55 15:29 WBC (3.5-10.8) 10^3/ul RBC (4.0-5.4) 10^6/ul Hgb (14.0-18.0) g/dl Hct (42-52) % MCV (80-94) fL MCH (27-31) pg MCHC (31-36) g/dl RDW (10.5-15) % Plt Count (150-450) 10^3/ul MPV (7.4-10.4) um3 Neut % (Auto) (38-83) % Lymph % (Auto) (25-47) % [place] % (Auto) (1-9) % Eos % (Auto) (0-6) % Baso % (Auto) (0-2) % Absolute Neuts (auto) (1.5-7.7) 10^3/ul Absolute Lymphs (auto) (1.0-4.8) 10^3/ul Absolute Monos (auto) (0-0.8) 10^3/ul Absolute Eos (auto) (0-0.6) 10^3/ul Absolute Basos (auto) (0-0.2) 10^3/ul Absolute Nucleated RBC 10^3/ul Nucleated RBC % INR (Anticoag Therapy) (0.89-1.11) Sodium (133-145) mmol/L Potassium (3.5-5.0) mmol/L Chloride (101-111) mmol/L Carbon Dioxide (22-32) mmol/L Anion Gap (2-11) mmol/L BUN (6-24) mg/dL Creatinine (0.67-1.17) mg/dL Est GFR ( Amer) (>60) Est GFR (Non-Af Amer) (>60) BUN/Creatinine Ratio (8-20) Glucose (70-100) mg/dL Lactic Acid 3.2 H* 3.1 H* (0.5-2.0) mmol/L Calcium (8.6-10.3) mg/dL Total Bilirubin (0.2-1.0) mg/dL AST (13-39) U/L ALT (7-52) U/L Alkaline Phosphatase (34-104) U/L Troponin I (<0.04) ng/mL C-Reactive Protein (< 5.00) mg/L Total Protein (6.4-8.9) g/dL Albumin (3.2-5.2) g/dL Globulin (2-4) g/dL Albumin/Globulin Ratio (1-3) Lipase (11.0-82.0) U/L Urine Color [place] Urine Appearance Cloudy Urine pH 5.0 (5-9) Ur Specific [place] 1.010 (1.010-1.030) Urine Protein 1+(30 mg/dl) H (Negative) Urine Ketones Negative (Negative) Urine Blood 2+ H (Negative) Urine Nitrate Negative (Negative) Urine Bilirubin Negative (Negative) Urine Urobilinogen Negative (Negative) Ur Leukocyte Esterase Negative (Negative) Urine WBC (Auto) Absent (Absent) Urine RBC (Auto) 1+(3-5/hpf) H (Absent) Urine Bacteria Absent (Absent) Granular Casts Present H (Absent) Urine Glucose Negative (Negative) Microbiology and Other Data: Microbiology 11/28/16 17:44 Nasal Screen MRSA (PCR)(STELLA) - Final Nasal Mrsa Negative Assess/Plan/Problems-Billing Assessment: 71 yo M p/w distributive shock in setting of pancreatitis - Patient Problems (1) Shock Comment: In setting of pancreatitis although I still feel there is an infectious component to his presentation (septic shock). He fulfills to [facility] for cholangitis. -c/w zosyn and repeat US RUQ to reimage biliary system -change NS to LR at 300cc/hr -c/w levophed, titrate MAPS 60-65 -ID c/s, consider GI c/s after repeat US RUQ (2) Pancreatitis Comment: In setting of infection or increased alcohol November 23 fluids as above (3) NSTEMI (non-ST elevated myocardial infarction) Comment: suspect type 2 repeat ekg now TTE this AM trend troponins until peak (4) Acute kidney failure Comment: suspect ATN fluids as above (5) FAMILIA (obstructive sleep apnea) Status: Acute Comment: CPAP (6) DVT prophylaxis Comment: HSQ
--- NOTE | 2016-11-29 10:33 | RAD ---
Indication: Biliary obstruction Real-time sonography of the right upper quadrant was performed. The liver demonstrates no focal lesions or intrahepatic ductal dilatation. Common duct measures 6 mm. The gallbladder demonstrates a small amount of pericholecystic fluid without evidence of gallstones. A trace amount of ascites is noted. IMPRESSION: Ascites is present. No intra or extrahepatic biliary ductal dilatation is noted.
[2016-11-29 10:59] LABS: Troponin I 0.73 ng/mL (<0.04)
--- NOTE | 2016-11-29 11:17 | ECHO ---
Patient: ELYSE HANLEY [facility] Rec#: [id number] : 1945 Date: 11/29/2016 Age: 71y Height: 175.26 cm / 69.0 in Weight: 81.65 kg / 180.0 lbs Sex: M BSA: 1.98 Room#: ICU 5 Admit Date#: 11/28/2016 Type: Inpatient Referring: Aguila Javier MD Reading: Pro Lovett MD Sales Representative [employer]: Nisha Ware,RDCS,RDMS CC: Gino Meredith MD Transthoracic Echocardiogram Indication: Hypotension, NSTEMI, Shock BP: 93/65 HR: 86 Rhythm: NSR Findings History: CAD, HTN, HLD, FAMILIA Technical Comments: The study quality is fair. The study is technically limited due to poor apical windows. Completed 0845 Left Ventricle: The left ventricular chamber size is normal. Mild concentric left ventricular hypertrophy is observed. There is global hypokinesis of the left ventricle with minor regional variation. There is moderately decreased left ventricular systolic function. The estimated ejection fraction is 30-35%. Abnormal left ventricular diastolic function is observed. Left Atrium: The left atrium is mildly dilated. Right Ventricle: The right ventricular cavity size is normal. The right ventricular global systolic function is moderately reduced. Right Atrium: The right atrial cavity size is normal. Aortic Valve: The aortic valve is trileaflet. The aortic valve leaflets are mildly thickened. There is aortic annular calcification. There is no evidence of aortic regurgitation. There is no evidence of aortic stenosis. Mitral Valve: The mitral valve leaflets appear normal. There is mild mitral regurgitation. There is no evidence of mitral stenosis. Tricuspid Valve: The tricuspid valve leaflets are normal. There is trace tricuspid regurgitation. Pulmonic Valve: The pulmonic valve appears normal. There is a trace pulmonic regurgitation. Pericardium: There is no significant pericardial effusion. Aorta: There is borderline dilatation of the ascending aorta. The aortic arch is not well visualized. There is no dilation of the aortic root. Pulmonary Artery: The main pulmonary artery appears normal. Venous: The inferior vena cava is dilated. There is less than 50% respiratory change in the inferior vena cava dimension. Contrast: Definity was used to optimize study. A toal of 4 ml was used Summary: There was not any prior study for comparison. Conclusions Mild concentric left ventricular hypertrophy is observed. There is global hypokinesis of the left ventricle with minor regional variation. There is moderately decreased left ventricular systolic function. The estimated ejection fraction is 30-35%. There is no evidence of aortic stenosis. There is mild mitral regurgitation. There is trace tricuspid regurgitation. There is no significant pericardial effusion. Measurements Name Value Normal Range RVIDd (AP) 2D 2.7 cm (0.9 - 2.6) RAd ISD 4CH 4.8 cm (3.4 - 4.9) RA (A4C)W 3.6 cm (2.9 - 4.6) IVSd (2D) 1.3 cm (0.6 - 1) LVPWd (2D) 1.2 cm (0.6 - 1) LVIDd (2D) 5.2 cm (3.6 - 5.4) LVIDs (2D) 4.7 cm - LV FS (2D) 10 % (25 - 45) Aortic Annulus 1.9 cm (1.4 - 2.6) Ao root diameter (2D) 3.1 cm (2.1 - 3.5) Ascending Ao 3.5 cm (2.1 - 3.4) LA dimension (AP) 2D 4.3 cm (2.3 - 3.8) LAd ISD 4CH 6.5 cm (2.9 - 5.3) LA ISD 4CH W 4.2 cm (2.5 - 4.5) Name Value Normal Range LA ESV SP 4CH (A/L) 64.55 ml - LA ESV SP 2CH (A/L) 75.91 ml - LA ESV BP (A/L) 70.7 ml - LA ESV BP (A/L) index 36 ml/m2 - LA ESV SP 4CH (MOD) 60.12 ml - LA ESV SP 2CH (MOD) 72.59 ml - Name Value Normal Range MV E-wave Vmax 0.7 m/sec - MV deceleration time 170 msec - MV A-wave Vmax 0.4 m/sec - MV E:A ratio 1.8 ratio - LV septal e' Vmax 0.05 m/sec - LV lateral e' Vmax 0.05 m/sec - LV E:e' septal ratio 14 ratio - LV E:e' lateral ratio 14 ratio - Name Value Normal Range AV Vmax 1.1 m/sec - AV VTI 21 cm - AV peak gradient 5 mmHg - AV mean gradient 2.8 mmHg - LVOT Vmax 0.8 m/sec - LVOT VTI 14 cm - LVOT peak gradient 2.6 mmHg - LVOT mean gradient 1.2 mmHg - Name Value Normal Range TR Vmax 2.2 m/sec - TR peak gradient 19 mmHg - RAP 8 mmHg - RVSP 27 mmHg - IVC diameter 2.9 cm - Name Value Normal Range PV Vmax 0.5 m/sec - PV peak gradient 1 mmHg -
--- NOTE | 2016-11-29 12:23 | CONSULT ---
Consult Consult: CRITICAL CARE MEDICINE DATE: 11/29/16 TIME: 1100 PRIMARY CARE PROVIDER: Yue REFERRING PROVIDER: Yaya REASON/CHIEF COMPLAINT: septic shock with msof HISTORY OF PRESENT ILLNESS: 71 M with h/o htn, diane on cpap who present with abd pain and sepsis. MSOF on presentation with septic encephalopathy requiring central line and vasopressors. Recieved >12L IVF and on levophed gtt. Advocated for stress dose steroids. On zosyn with ecoli in . Concern for acute cholecystitis but no ductal dilation nor gb thickening. lipase elevated. treated conservatively. Had drank a bit too much on November 23, had some intermittent abd discomfort that worsened sat night. Had fever, chills, shakes. Thought he could manage at home. Sun am pt ok at first then became worse with altered ms even. ems summonded. REVIEW OF SYSTEMS: As per HPI. prior to this week no weight loss, night sweats. Had been evaluated about 2 weeks ago for urinary retention but with good bladder emptying at that time. PAST MEDICAL HISTORY: As per HPI. MEDICATIONS: Reviewed. ALLERGIES: NKDA SOCIAL HISTORY: . active. retired from [employer] FAMILY HISTORY: Noncontributory at present. PHYSICAL EXAM: Vital Signs: Reviewed. 4L O2 with rr high 20s Neurologic: communicating well. recovered encephalopathy HEENT: icteric sclera, mmm Cardiovascular: distant, S1, S2 no gallop nor m appreciated. Respiratory: prolonged exhalation phase, short inhalation with dull bases. 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 discomfort to palpation to left flank and upper quad. Extremities: warm Access: left ij cvc, piv; bailey LABS: Reviewed. IMAGING: Reviewed. MEDICATIONS: Reviewed. ASSESSMENT: 71 M MSOF Septic shock sec to ecoli Acute pancreatitis Acute cholecystitis Stress cardiomyopathy Acute hypoxic resp failure Acute renal failure Septic encephalopathy present on admission Relative adrenal insuff PLAN: Neurologic: tolerating. prn morphine. stable now Cardiovascular: Perfusing better. vol status met but with large ebb phase early on here. dec ivf but keep. stress cardiomyopathy with demand ischemia. may benefit from f/u echo for recovery or at least cards eval prior to disposition to eval further once infectious concerns resolved. Can resume his outpt asa. check lipids and resume statin when lfts improve. wean levophed. Respiratory: tolerating and allow him to handle. no macro lung injury post but with some impedance given abd distension and acidemia. NC. HFO2 if sx worse. Gastrointestinal: no acute surgical needs but will need close f/u of potential subacute needs. Ask GI to eval. clear diet today. Renal/Metabolic: stabilized and uout will likely cesar today and then improve. dec ivf. Infectious Disease: on zosyn with good coverage. appreciate ID f/u for narrowing with sens Hematology: stable and only slightly diluted post 10+ Liters of fluid. asa. INR up post sepsis consumption. Endocrine: stress dose steroids today. Musculoskeletal: oob. Psych/Social: pt and expressed understanding Supportive and preventative care as ordered. SUP: ppi VTE prophylaxis: heparin Bailey catheter given critical illness, monitoring needs for accurate assessment of BETSY and KDIGO criteria for critically ill patients and to avoid potential harms of urinary retention, skin breakdown/ulcers. Disposition: ICU care Code Status: Full Critical Care Time: 45min FHeron Hope DO
--- NOTE | 2016-11-29 12:39 | CONS ---
CONSULTATION REPORT: DATE OF CONSULT: 11/29/16 REQUESTING PHYSICIAN: Dr. Javier. CONSULTING SERVICE: Infectious Disease. REASON FOR CONSULT: Severe sepsis. IMPRESSION: 1. Severe sepsis due to Escherichia coli bacteremia in the setting of transaminitis, lipase of 10,000, pancreatic stranding, abdominal pain, all consistent with pancreatitis, bilirubin of 5.5, ALT is 350, taken together consideration for a stone below the pancreatic and common bile duct is a consideration, given that his ALT is trending down and that he is improving hemodynamically, he may have passed the said stone. 2. Hyperchloremic metabolic acidosis. 3. Increasing troponin up to 0.44. RECOMMENDATION: Agree with Zosyn 3.375 g IV every 8 hours by extended infusion , while we await the susceptibility data. He is going to have a followup ultrasound of the gallbladder to evaluate the ducts there. If that is unrevealing, an MRCP would be a reasonable consideration as well. HISTORY OF PRESENT ILLNESS: This is a 71-year-old man admitted with abdominal pain and rigors. He was well until the end of last week. He started to develop chills, fevers, sweats, abdominal pain that seemed to be worse with eating or drinking. He decided to wait it out for a couple of days, had developed rigors, worsening abdominal pain. His legs gave out. The day of 02/06, he was brought by ambulance to the ER, his white blood cell count was 1. His creatinine was 2, his blood pressure was in the 70s systolic, and had decreased mental status. He had a central venous catheter placed in internal jugular. He was started on IV fluid resuscitation and vasopressors, which he continues on today. His blood pressure is in the 90s, he is mentating better. He had fever to 39.3 on the day of admission, he has been afebrile since then. He had a lipase of 10,000. A CT of the abdomen and pelvis showed peripancreatic inflammatory change, bilateral pleural effusions, kidney cysts, nonobstructing right renal calyceal stone. He has had no urinary symptoms. His urinalysis showed 2+ blood, no leukocyte esterase, or nitrites. He has ongoing mid abdominal and right upper quadrant abdominal pain that radiated to the back, it is better than when he got here. PAST MEDICAL HISTORY: 1. Coronary disease with history of PCI. 2. Hypertension. 3. Hyperlipidemia. 4. Obstructive sleep apnea, on CPAP. 5. Hiatal hernia. 6. Status post appendectomy. MEDICATIONS: 1. Aspirin. 2. Heparin subcutaneous injection. 3. Hydrocortisone 100 mg IV every 8 hours. 4. Norepinephrine infusion. 5. Lactated Ringer's infusion. 6. Zosyn 3.375 g every 8 hours by extended infusion. ALLERGIES: No known drug allergies. FAMILY HISTORY: Grandfather with gallbladder disease. SOCIAL HISTORY: He lives in [place], he is up here on his boat for part of the summer. He has no travel. No sick contacts. REVIEW OF SYSTEMS: A full review of systems was negative except as noted above in the HPI. PHYSICAL EXAM: Vital Signs: 37, heart rate 90, respiratory rate 20, blood pressure 90/60, O2 sat 95% on room air. In general, he is awake, not in distress. He is not diaphoretic. Neurologic: He is oriented x3, follows commands, moves all of his extremities. HEENT: There is no conjunctival hemorrhage. Oropharynx without lesions. Neck: Supple without nuchal rigidity. Lymph Nodes: There is no cervical, supraclavicular, inguinal, axillary, or epitrochlear lymphadenopathy. Heart: Regular rate and rhythm without murmurs, rubs, or gallops. Lungs: Clear to auscultation bilaterally. Abdomen: Mildly distended, it is soft, there is no rebound tenderness. There is epigastric and right upper quadrant tenderness to mild palpation. There is decreased bowel sounds. Skin: There is no rash or splinter hemorrhages. Musculoskeletal: There is no spine tenderness to palpation or joint synovitis. LABORATORY DATA: White blood cell count 19, hemoglobin 12, platelets 101. Creatinine is 2.2, BUN is 30. Bilirubin is 5.4, ALT is 354. Lactate 3.5. Please see impressions and recommendations outlined above, which I have discussed with Dr. Javier. Thank you for asking me to see Mr. Diggs in consultation. [id number]/[facility] #: [id number] MTDMarcial
[2016-11-29 13:59] LABS: HDL Cholesterol 32.2 mg/dL
[2016-11-29] MEDS ORDERED: LORazepam INJ* 2 MG/ML 1 ML VIAL IV PUSH PRN (15:03)
[2016-11-29] MEDS ORDERED: Aspirin EC Low Dose* 81 MG TAB.EC PO ONE (18:00)
[2016-11-29] MEDS ORDERED: Aspirin EC Low Dose* 81 MG TAB.EC ONE (18:26)
--- NOTE | 2016-11-29 21:48 | CONS ---
CC: Dr. Gino Meredith* CONSULTATION REPORT: DATE OF CONSULTATION: 11/29/16 REQUESTING PHYSICIAN: INDICATIONS: Pancreatitis. NARRATIVE: Mr. Diggs is a pleasant 71-year-old gentleman with a history of coronary artery disease, hypertension, hyperlipidemia, and sleep apnea, who was admitted yesterday with pancreatitis and sepsis. The patient developed sudden abdominal pain that was burning and aching, radiating through to his back on Tuesday. He did eat some food and it got worse and he was brought to the emergency room. He was drinking a little bit more alcohol than he normally does on 11/23/16 and felt slightly ill after that. When he came to the emergency room, he was found to be hypotensive, had pancreatitis, and was admitted to the hospital. He was started on Zosyn for E. coli septicemia and was admitted to the ICU. He states that he does feel a little bit better, his pain has improved, he is not hungry, he did try and eat some Jel-O and developed pain afterwards. He denied any appreciating dark- colored stools or urine and no jaundice prior to couple of days ago. No family history of GI malignancy. PAST MEDICAL HISTORY: Please see the HPI. MEDICATIONS: Include: 1. Atorvastatin. 2. Aspirin. 3. Arginine. 4. Amlodipine. 5. Calcium. 6. Benazepril. 7. Omeprazole. 8. Metoprolol. 9. Vitamin B12. ALLERGIES: None. FAMILY HISTORY: Brain cancer, aortic aneurysm. SOCIAL HISTORY: He is retired from [email or web address]. Two alcoholic beverages per day. REVIEW OF SYSTEMS: 12 systems were reviewed, other than mentioned in the HPI were unremarkable. PHYSICAL EXAMINATION: Temperature is 98.2, blood pressure is 85/60, pulse is 88 , respiratory rate of 21, O2 sat is 99% on nasal cannula. General: Slightly ill- appearing male, in no apparent distress. Alert, oriented, pleasant, fluent. HEENT: Mucous membranes are dry without lesions, ulcers, or exudate. Neck is supple. Sclera are icteric. Conjunctiva not pale. Heart: Regular rate and rhythm, tachy. Lungs are clear to auscultation. Abdomen is distended , positive bowel sounds, but hypoactive, no rebound, no guarding. Diffuse tenderness throughout, but more on the right. No rebound or guarding. DIAGNOSTIC STUDIES/LAB DATA: CT abdomen and pelvis revealed pancreatitis and an ultrasound from this morning showed ascites, no gallstones, and a common bile duct of 6 mm. BUN is 32, creatinine is 2.23, this has increased slightly. Lactate went from 3.1 to 3.5, bilirubin is 5.4, AST is 283, ALT is 354, alk phos is 85, troponins went from 0.25 to 0.73, lipase is 2765. ASSESSMENT AND PLAN: This is a pleasant 71-year-old gentleman with pancreatitis and hepatitis. It does not appear that it is related to choledocholithiasis or cholecystitis or past gallstones. His alk phos is normal , common bile duct is only 6 mm, so that makes it less likely. I am having a tough time explaining his E. coli septicemia. Alcohol could have triggered his pancreatitis and hepatitis and he could have the E. coli septicemia on top of all that. At this point, I do not think he needs an ERCP, I would first advocate for an MRCP prior to an ERCP if needed. I would recommend we repeat his LFTs tomorrow. We will continue to follow on from a GI standpoint. [id number]/[facility] #: [id number] SHELIA
[2016-11-30] MEDS: Hydrocortisone INJ* 100 MG VIAL IV SCH ×3 (03:39→18:07)
[2016-11-30] MEDS: ZOSYN 3.375 GM Q8H per EXTENDED INFUSION IVPB SCH ×4 (03:40→11:31)
[2016-11-30] MEDS: Heparin VIAL(*) 5000 UNITS/ML VIAL (FIVE THOUSAND) SUBCUT SCH ×3 (05:39→21:39)
[2016-11-30 06:10] LABS: Hematocrit 34 % (42-52); Mean Corpuscular HGB Conc 33 g/dl (31-36); Mean Corpuscular Hemoglobin 32 pg (27-31); Mean Corpuscular Volume 97 fL (80-94); Mean Platelet Volume 9 um3 (7.4-10.4); Red Blood Count 3.44 10^6/ul (4.0-5.4); Red Cell Distribution Width 14 % (10.5-15); White Blood Count 25.3 10^3/ul (3.5-10.8)
[2016-11-30 06:21] LABS: BUN/Creatinine Ratio 16.2 (8-20); Calcium 6.5 mg/dL (8.6-10.3); EGFR African American 29.9 (>60); EGFR Non-African American 23.2 (>60); HDL Cholesterol 34.7 mg/dL; Magnesium 1.3 mg/dL (1.9-2.7); Phosphorus 4.2 mg/dL (2.5-5.0); Potassium 4.9 mmol/L (3.5-5.0)
[2016-11-30 06:24] LABS: Comments Flag Yes
[2016-11-30 06:25] LABS: Add Diff/Slide Review? Manual Diff Added
[2016-11-30 06:26] LABS: Troponin I 12.86 ng/mL (<0.04)
[2016-11-30] MEDS ORDERED: Magnesium Sulfate 2 GM IV* 2 GM/50 ML BAG IVPB ONE (06:29)
[2016-11-30 06:58] LABS: Add Path Review? YES; Immature Granulocytes 16 % (0-9); Neutrophil % 80 % (38-83); RBC Morphology Normal (Normal); Reactive Lymph % 1 % (0-6); Toxic Granulation 1+
--- NOTE | 2016-11-30 08:01 | RAD ---
Indication: Moderate dyspnea. Decreased lung sounds. Severe sepsis and possible cholangitis. Comparison: November 28, [address] abdomen. Technique: Upright AP 0742 hours Report: Tip of LEFT IJ central venous catheter is at the level of the LEFT brachiocephalic vein directed central. Small RIGHT and trace LEFT pleural effusions with interval increase. Prominent ill-defined central pulmonary vasculature and diffuse prominence of interstitial markings. Negative for pneumothorax. Mild cardiomegaly. Negative for free air beneath the diaphragm. IMPRESSION: The constellation of findings is most consistent with new pulmonary vascular congestion and interstitial edema with associated RIGHT larger than LEFT small pleural effusions.
[2016-11-30] MEDS: Omeprazole CAP* 20 MG PO SCH (08:14)
[2016-11-30] MEDS: Aspirin EC Low Dose* 81 MG TAB.EC PO SCH (08:14)
[2016-11-30 09:34] LABS: Albumin 2.8 g/dL (3.2-5.2); Direct Bilirubin 2.5 mg/dL (0.03-0.18); Indirect Bilirubin 1.3 mg/dL (0.3-1.0); Total Bilirubin 3.8 mg/dL (0.2-1.0); Total Protein 4.8 g/dL (6.4-8.9)
[2016-11-30] MEDS ORDERED: Vitamin THERAPEUTIC TAB PO ONE (11:34)
[2016-11-30] MEDS ORDERED: Phytonadione Oral Solution* 5 MG/25 ML UDC PO ONE (11:41)
--- NOTE | 2016-11-30 11:59 | PN ---
Progress Note - Progress Note Date of Service: 11/30/16 Note: CRITICAL CARE MEDICINE DATE: 11/30/16 TIME: 1000 SUBJECTIVE: Patient seen and examined. PHYSICAL EXAM: Vital Signs: Reviewed. 20L O2 with rr mid20s Neurologic: communicating well. recovered encephalopathy HEENT: icteric sclera, mmm Cardiovascular: distant, S1, S2 no gallop nor m appreciated. Hr 80s. Respiratory: prolonged exhalation phase, few rales, dec bl; tolerating. Abdomen: distended but better. less pain to palpation. dec bs. +ascites Extremities: warm Access: left ij cvc, piv; bailey LABS: Reviewed. IMAGING: Reviewed. MEDICATIONS: Reviewed. ASSESSMENT: 71 M MSOF Septic shock sec to ecoli Acute pancreatitis Acute heptatitis Consumptive coagulaopathy of sepsis Stress cardiomyopathy with NSTEMI Acute hypoxic resp failure Acute renal failure with component of ATN Septic encephalopathy present on admission but resolved Relative adrenal insuff PLAN: Neurologic: tolerating. prn morphine. Cardiovascular: Perfusing. Intravascular vol holding and interstial up; No cp. trop post demand ischemia higher then expected. ECG better but likely diseased circ. on asa. not on statin due to liver dysfunction. Given consumptive coagulaopathy and lack of type 1 ischemia would still hold off on further anti- plt nor heparin. will need cards eval when better and cath at some point when better and infection controlled. off levophed. dc ivf. see if he can mobilize. consider bb when able. Respiratory: no surprise to have a degree of non-cardiogenic +/- cardiogenic edema in his course. wob much better. stay on HFO2 today. try not to exacerbate wob. mobilize fluid as able. Gastrointestinal: Appreciate GI eval. Still seems like a biliary source but lfts are better and his insult to hepatitis and pancreatitis are improved and ecoli seems controlled. Continued conservative course. can consider mrcp and timing of such as not emergent. full liquid diet today. Renal/Metabolic: Urine output holding and looking for recovery diuretic phase hopefully soon and then mobilize fluid. Infectious Disease: on zosyn with good coverage for pansens ecoli. will d/w id about de-escalation. No indication to seek further source control at this moment as he is clincally better; wbc up in maturation. Hematology: stable and only slightly diluted. INR up post sepsis consumption and give vit k. can check fibrinogen but no clinical dic. Endocrine: stress dose steroids. Musculoskeletal: oob as able but take it slow today Psych/Social: pt and expressed understanding Supportive and preventative care as ordered. SUP: po VTE prophylaxis: heparin subq Bailey catheter given critical illness, monitoring needs for accurate assessment of BETSY and KDIGO criteria for critically ill patients and to avoid potential harms of urinary retention, skin breakdown/ulcers. Disposition: ICU care Code Status: Full Critical Care Time: 40min FHeron Hope DO
--- NOTE | 2016-11-30 14:47 | PN ---
Progress Note - Progress Note Date of Service: 11/30/16 SOAP: Subjective: CC: bacteremia HPI: 71 yo man admitted with septic shock; pancreatitis, hepatitis, bacteremia. Off pressors today, high flow O2. Feels better. Abd bloated, had a BM today. Some nausea after eating. No rash or fever. Objective: [] Vital Signs Temp 36.6 C 11/30/16 14:00 Pulse 85 11/30/16 14:00 Resp 24 11/30/16 14:00 BP 126/80 11/30/16 14:00 Pulse Ox 99 11/30/16 14:00 Intake & Output 11/29/16 11/30/16 11/30/16 18:59 06:59 18:59 Intake Total 4006 2984 360 Output Total 275 350 Balance 3731 2634 360 Weight 221 lb 1.978 oz Intake: IV Fluids 2243 2454 ABX - PIPERACILLIN 4 96 LR 1102 2275 NS (0.9%) 1137 83 IVPB 54 114 ABX - PIPERACILLIN 54 NS (0.9%) 114 Medicated IV 1239 326 CC - Norepinephrine/ 423 326 Levophed KCL 816 Oral 470 90 360 Output: Fagan 275 350 Gen:awake, no distress, flushed HEENT:PERRL, MMM Neck:supple Heart:RRR no murmur Lungs: Decr BS at bases BL Abd:hig pitched BC, mild distended, epigastric and RUQ tenderness Skin: no rash MSK:no spine tenderness Laboratory Results - last 24 hr 11/28/16 11/29/16 11/29/16 13:15 16:34 17:17 WBC RBC Hgb Hct MCV MCH MCHC RDW Plt Count MPV Immature Gran % (Auto) Absolute Neuts (auto) Absolute Lymphs (auto) Absolute Monos (auto) Absolute Eos (auto) Absolute Basos (auto) Absolute Nucleated RBC Neutrophils % Band Neutrophils % Lymphocytes % Reactive Lymphs % Toxic Granulation Normal RBC Morphology Hem Pathologist Commnt INR (Anticoag Therapy) Sodium 141 Potassium 2.7 L* Chloride 109 Carbon Dioxide 21 L Anion Gap 11 BUN 27 H Creatinine 1.93 H Est GFR ( Amer) 44.4 Est GFR (Non-Af Amer) 34.5 BUN/Creatinine Ratio 14.0 Glucose 151 H Calcium 9.3 Phosphorus Magnesium Total Bilirubin 4.40 H Direct Bilirubin Indirect Bilirubin AST 304 H ALT 377 H Alkaline Phosphatase 159 H Ammonia Troponin I 0.06 H* 6.97 H* 7.00 H* C-Reactive Protein 101.81 H Total Protein 6.4 Albumin 4.0 Globulin 2.4 Albumin/Globulin Ratio 1.7 Triglycerides Cholesterol LDL Cholesterol HDL Cholesterol Lipase 9671 H 11/30/16 11/30/16 11/30/16 05:58 05:58 05:58 WBC 25.3 H RBC 3.44 L Hgb 11.0 L Hct 34 L MCV 97 H MCH 32 H MCHC 33 RDW 14 Plt Count 90 L MPV 9 Immature Gran % (Auto) 16 H Absolute Neuts (auto) 22.4 H Absolute Lymphs (auto) 0.5 L Absolute Monos (auto) 0.7 Absolute Eos (auto) 1.7 H Absolute Basos (auto) 0 Absolute Nucleated RBC 0.01 Neutrophils % 80 Band Neutrophils % 16 H Lymphocytes % 3 L Reactive Lymphs % 1 Toxic Granulation 1+ Normal RBC Morphology Normal Hem Pathologist Commnt INR (Anticoag Therapy) Sodium 140 Potassium 4.9 D Chloride 118 H Carbon Dioxide 14 L* Anion Gap 8 BUN 44 H Creatinine 2.72 H Est GFR ( Amer) 29.9 Est GFR (Non-Af Amer) 23.2 BUN/Creatinine Ratio 16.2 Glucose 116 H Calcium 6.5 L Phosphorus 4.2 Magnesium 1.3 L Total Bilirubin 3.80 H D Direct Bilirubin 2.50 H Indirect Bilirubin 1.3 H AST 203 H ALT 283 H Alkaline Phosphatase 67 Ammonia 47 Troponin I 12.86 H* C-Reactive Protein Total Protein 4.8 L Albumin 2.8 L Globulin 2.0 Albumin/Globulin Ratio 1.4 Triglycerides 65 Cholesterol 69 LDL Cholesterol 21 HDL Cholesterol 34.7 Lipase Microbiology 11/28/16 13:30 Aerobic Blood Culture - Final Blood Venous Escherichia Coli Anaerobic Blood Culture - Final Escherichia Coli Blood Culture - Final 11/28/16 13:15 Aerobic Blood Culture - Final Blood Venous Escherichia Coli Anaerobic Blood Culture - Final Escherichia Coli Blood Culture - Final Assessment: 1. encephalopathy, present on admission, resolved 2. septic shock, present on admission, resolving 3. E.coli bacteremia; suspect biliary source vs infected renal cyst which is less likely 4. hepatitis and pancreatitis Plan: 1. change zosyn to ceftriaxone and flagyl, recheck BC given unclear source of infection (ordered). Discussed with Dr Hope
[2016-11-30] MEDS: metroNIDAZOLE IV 500 MG/100ML* 500 MG/100 ML BAG IVPB SCH (18:07)
[2016-11-30] MEDS: cefTRIAXone* 1 GM in NS 0.9% 50 ML BAG IVPB SCH (19:39)
[2016-12-01] MEDS: metroNIDAZOLE IV 500 MG/100ML* 500 MG/100 ML BAG IVPB SCH ×3 (01:44→18:25)
[2016-12-01] MEDS: Hydrocortisone INJ* 100 MG VIAL IV SCH ×4 (03:15→19:26)
[2016-12-01] MEDS: Morphine INJ* 2 MG/ML 1 ML SYRINGE IV PRN (03:45)
[2016-12-01] MEDS: Heparin VIAL(*) 5000 UNITS/ML VIAL (FIVE THOUSAND) SUBCUT SCH ×3 (05:25→21:36)
[2016-12-01 06:00] LABS: Hematocrit 33 % (42-52); Hemoglobin 11.1 g/dl (14.0-18.0); Mean Corpuscular HGB Conc 33 g/dl (31-36); Mean Corpuscular Hemoglobin 32 pg (27-31); Mean Corpuscular Volume 96 fL (80-94); Mean Platelet Volume 9 um3 (7.4-10.4); Red Blood Count 3.46 10^6/ul (4.0-5.4); Red Cell Distribution Width 14 % (10.5-15); White Blood Count 30.5 10^3/ul (3.5-10.8)
[2016-12-01 06:01] LABS: Add Diff/Slide Review? Manual Diff Added; Comments Flag Yes
[2016-12-01 06:17] LABS: Albumin 2.7 g/dL (3.2-5.2); BUN/Creatinine Ratio 18.4 (8-20); Calcium 7.1 mg/dL (8.6-10.3); Direct Bilirubin 1.7 mg/dL (0.03-0.18); EGFR African American 31.3 (>60); EGFR Non-African American 24.3 (>60); Globulin 2.5 g/dL (2-4); Indirect Bilirubin 1.1 mg/dL (0.3-1.0); Magnesium 1.9 mg/dL (1.9-2.7); Potassium 4.1 mmol/L (3.5-5.0); Total Bilirubin 2.8 mg/dL (0.2-1.0); Total Protein 5.2 g/dL (6.4-8.9)
[2016-12-01 06:20] LABS: Immature Granulocytes 20 % (0-9); Neutrophil % 66 % (38-83); RBC Morphology Normal (Normal)
[2016-12-01 06:26] LABS: Troponin I 16.6 ng/mL (<0.04)
[2016-12-01] MEDS: Omeprazole CAP* 20 MG PO SCH (09:48)
[2016-12-01] MEDS: Aspirin EC Low Dose* 81 MG TAB.EC PO SCH (09:48)
[2016-12-01] MEDS ORDERED: Albuterol 2.5 MG/3 ML NEB.SOL* (0.083%) INH PRN (10:28)
--- NOTE | 2016-12-01 10:34 | PN ---
Progress Note - Progress Note Date of Service: 12/01/16 Note: CRITICAL CARE MEDICINE DATE: 12/01/16 TIME: 950 SUBJECTIVE: Patient seen and examined. Feels a little better. PHYSICAL EXAM: Vital Signs: Reviewed. 20L O2 with rr mid20s, sats well. inc Uout. Hr 80s. Neurologic: communicating well. HEENT: icteric sclera, mmm Cardiovascular: distant, S1, S2 no gallop nor m appreciated. Respiratory: short inhalation but good flow, mild prolonged exhalation phase, few rales and dec bl Abdomen: distended. +BM. no sharp pain to palpation. + inc ascites Extremities: warm Access: left ij cvc, piv; bailey LABS: Reviewed. IMAGING: Reviewed. MEDICATIONS: Reviewed. ASSESSMENT: 71 M MSOF Septic shock sec to ecoli Acute pancreatitis Acute heptatitis Consumptive coagulaopathy of sepsis Stress cardiomyopathy and NSTEMI Acute hypoxic resp failure Acute renal failure with component of ATN Septic encephalopathy present on admission but resolved Relative adrenal insuff PLAN: Neurologic: tolerating. prn morphine. Cardiovascular: Perfusing. Intravascular vol well and interstitial fluid remains up. No cp. trop was still high. demand ischemia and fall out from early shock as ecg improved and troponin linger from betsy. check ecg today but expect same. remain on asa daily. reserve statin due to hepatitis. Cards eval when better for cath at some point likely when better and infection controlled. remains off levophed. off ivf. no bb just yet. if later today his renal recovery continues would then start on lasix and push lung water/cardiac improvement and leave renal function a bit dysfuctional Respiratory: remains with some degree of non-cardiogenic +/- cardiogenic pulm edema. wob maintained and needs flow phase for recovery but still has ebb components. evaluating for source prior to diuretic challenge. HFO2 today. trial metaneb for recruitment during day. resume cpap nocturnally. Gastrointestinal: mrcp today, even though hepatitis is better and bili down but still with inflammatory response and need to ensure no further source control needs. full diet today if mrcp ok. sup with H2. Renal/Metabolic: Urine output holding and looking for recovery diuretic phase and augment with lasix when timing right; can take po water intake as likely to loose free water and sodium will rise promoting thirst, but again salt and water overloaded, salt more then water and lasix alone with post recovery diuretics phase will promote water >salt losses, hence thiazide potential with diuril or metolazone. Infectious Disease: on ceftriaxone > flagyl for ecoli septicemia. mcrp today. wbc up in maturation and post steroids and if following clinical course should being to fall come tomorrows labs, although he also may develop even more of a leukomoid reaction if his marrow was really suppressed from infective burden and inhibition from etoh. follow. Hematology: stable and only slightly diluted. INR responded to po vit k which is a great sign. hsq continued Endocrine: stress dose steroids taper and would look to place on prednisone short taper soon. Musculoskeletal: oob as able but still take it slow today Psych/Social: pt expressed understanding Supportive and preventative care as ordered. SUP: po VTE prophylaxis: heparin subq Bailey catheter given critical illness, monitoring needs for accurate assessment of BETSY and KDIGO criteria for critically ill patients and to avoid potential harms of urinary retention, skin breakdown/ulcers. Disposition: ICU care; still needs a few more icu days. Code Status: Full Critical Care Time: 35min Marry Hope DO
[2016-12-01] MEDS ORDERED: Famotidine IV* 10 MG/ML 2 ML (20 mg) IV SCH (11:00)
--- NOTE | 2016-12-01 11:22 | PN ---
Progress Note - Progress Note Date of Service: 12/01/16 SOAP: Subjective: CC: bacteremia HPI: 71 yo man admitted with septic shock; pancreatitis, hepatitis, bacteremia. High flow O2 20L, was out of bed. No chest pain or abd pain. No fever, rash , or diarrhea. Objective: [] Vital Signs Temp 36.8 C 12/01/16 10:00 Pulse 85 12/01/16 10:55 Resp 26 12/01/16 10:55 BP 143/90 12/01/16 10:00 Pulse Ox 96 12/01/16 10:55 Intake & Output 11/30/16 12/01/16 12/01/16 18:59 06:59 18:59 Intake Total 1194 681 400 Output Total 425 1250 Balance 769 -569 400 Weight 225 lb 15.581 oz Intake: IV Fluids 496 581 LR 496 154 NS (0.9%) 427 IVPB 218 ABX - PIPERACILLIN 121 Mag 60 NS (0.9%) 37 Oral 480 100 400 Output: Urine 425 Fagan 1250 Other: Date of Last Bowel 11/30/16 Movement # Bowel Movements 1 Estimated Stool Amount Medium Medium Gen:awake, no distress, flushed HEENT:PERRL, MMM Neck:supple Heart:RRR no murmur Lungs: Decr BS at bases BL Abd:mild distended, epigastric and RUQ tenderness Skin: no rash MSK:no spine tenderness Laboratory Results - last 24 hr 12/01/16 12/01/16 12/01/16 05:30 05:30 05:30 WBC 30.5 H RBC 3.46 L Hgb 11.1 L Hct 33 L MCV 96 H MCH 32 H MCHC 33 RDW 14 Plt Count 78 L MPV 9 Immature Gran % (Auto) 20 H Absolute Neuts (auto) 29.3 H Absolute Lymphs (auto) 0.4 L Absolute Monos (auto) 0.7 Absolute Eos (auto) 0 Absolute Basos (auto) 0 Absolute Nucleated RBC 0.02 Neutrophils % 66 Band Neutrophils % 20 H Lymphocytes % 7 L Monocytes % 7 Normal RBC Morphology Normal INR (Anticoag Therapy) 1.21 H Sodium 142 Potassium 4.1 Chloride 118 H Carbon Dioxide 16 L Anion Gap 8 BUN 48 H Creatinine 2.61 H Est GFR ( Amer) 31.3 Est GFR (Non-Af Amer) 24.3 BUN/Creatinine Ratio 18.4 Glucose 119 H Calcium 7.1 L Phosphorus 3.0 Magnesium 1.9 Total Bilirubin 2.80 H Direct Bilirubin 1.70 H Indirect Bilirubin 1.1 H AST 169 H ALT 220 H Alkaline Phosphatase 169 H Troponin I 16.60 H* Total Protein 5.2 L Albumin 2.7 L Globulin 2.5 Albumin/Globulin Ratio 1.1 Assessment: 1. encephalopathy, present on admission, resolved 2. septic shock, present on admission, resolved 3. E.coli bacteremia; suspect biliary source vs infected renal cyst which is less likely 4. hepatitis and pancreatitis 5. EF 30% ?due to sepsis 6. acute kidney injury 7. acute hypoxemic respiratory failure Plan: 1. ceftriaxone and flagyl, recheck BC pending 2. MRCP to evaluate biliary tree and for small liver abscess Discussed with Dr Hope
[2016-12-01] MEDS ORDERED: Furosemide IV* 10 MG/ML VIAL (40 MG) IV SLOW PU ONE (14:00)
--- NOTE | 2016-12-01 14:11 | RAD ---
Indication: Sepsis. Evaluate for cholangitis. Motion artifact degrades the images. Image sequences: Axial diffusion, axial T2, T1 fat sat, coronal T2, T1 and MRCP images of the abdomen were obtained. In phase and out of phase axial images were obtained. Motion artifact degrades the images. There are there are bilateral pleural effusions noted. There is likely compressive atelectasis and consolidation lung bases bilaterally. The heart demonstrates no pericardial effusion. The liver is normal in size. No focal lesions are identified. No definite intrahepatic ductal dilatation is noted. The common duct is not dilated. No evidence of abrupt termination of the common bile duct or pancreatic duct is noted. No filling defects are noted in gallbladder. Bilateral cysts are noted in the kidneys. No abnormal fluid collections are noted abdomen. IMPRESSION: NO EVIDENCE OF BILIARY DUCT DILATATION IS NOTED. NO FILLING DEFECTS IN COMMON BILE DUCT. BILATERAL PLEURAL EFFUSIONS WITH BIBASILAR CONSOLIDATION IN THE LUNG PICKERING.
[2016-12-01] MEDS ORDERED: Metoprolol Tartrate TAB* 25 MG PO ONE (15:00)
[2016-12-01] MEDS ORDERED: Metoprolol Tartrate IV* 1 MG/ML 5 ML VIAL IV ONE ×2 (15:10→16:21)
[2016-12-01] MEDS ORDERED: Metoprolol Tartrate IV* 1 MG/ML 5 ML VIAL ONE (15:14)
[2016-12-01] MEDS ORDERED: Amiodarone 150 MG IVPREMIX* 150 MG/100 ML BAG IV ONE (17:29)
[2016-12-01] MEDS ORDERED: Amiodarone 360 MG IVPREMIX* 360 MG/200 ML BAG IV SCH ×2 (17:30)
[2016-12-01] MEDS: cefTRIAXone* 1 GM in NS 0.9% 50 ML BAG IVPB SCH (19:26)
[2016-12-01 20:22] LABS: BUN/Creatinine Ratio 21.8 (8-20); Calcium 7.7 mg/dL (8.6-10.3); EGFR African American 34.7 (>60); Potassium 3.3 mmol/L (3.5-5.0)
[2016-12-01] MEDS ORDERED: Potassium Chlor TAB* 20 MEQ TAB.ER PO ONE (20:27)
[2016-12-01] MEDS ORDERED: KCL 20 MEQ/100 ML IVPREMIX* 20 MEQ/100 ML BAG IV SCH (21:00)
[2016-12-01] MEDS: KCL 10 MEQ/50 ML IVPREMIX* 10 MEQ/50 ML BAG IV SCH ×2 (21:31→22:49)
[2016-12-01] MEDS ORDERED: PROCHLORPERAZINE INJ 5 MG/ML 2 ML VIAL IV PRN (23:50)
[2016-12-01] MEDS ORDERED: Calcium Carbonate CHEW TAB* 500 MG (TUMS) PO PRN (23:50)
[2016-12-02] MEDS: KCL 10 MEQ/50 ML IVPREMIX* 10 MEQ/50 ML BAG IV SCH (00:14)
[2016-12-02] MEDS: metroNIDAZOLE IV 500 MG/100ML* 500 MG/100 ML BAG IVPB SCH ×3 (03:01→18:26)
[2016-12-02] MEDS: Heparin VIAL(*) 5000 UNITS/ML VIAL (FIVE THOUSAND) SUBCUT SCH ×3 (06:26→22:10)
[2016-12-02 06:44] LABS: Hematocrit 37 % (42-52); Hemoglobin 12.6 g/dl (14.0-18.0); Mean Corpuscular HGB Conc 34 g/dl (31-36); Mean Corpuscular Hemoglobin 32 pg (27-31); Mean Corpuscular Volume 95 fL (80-94); Mean Platelet Volume 10 um3 (7.4-10.4); Red Blood Count 3.94 10^6/ul (4.0-5.4); Red Cell Distribution Width 14 % (10.5-15)
[2016-12-02 06:47] LABS: Add Diff/Slide Review? Manual Diff Added; Comments Flag Yes
[2016-12-02 07:01] LABS: Albumin 3.2 g/dL (3.2-5.2); BUN/Creatinine Ratio 24.7 (8-20); Calcium 7.8 mg/dL (8.6-10.3); EGFR African American 36.8 (>60); EGFR Non-African American 28.6 (>60); Globulin 2.6 g/dL (2-4); Indirect Bilirubin 1.1 mg/dL (0.3-1.0); Magnesium 1.9 mg/dL (1.9-2.7); Phosphorus 2.3 mg/dL (2.5-5.0); Potassium 3.2 mmol/L (3.5-5.0); Total Bilirubin 2.1 mg/dL (0.2-1.0); Total Protein 5.8 g/dL (6.4-8.9)
[2016-12-02 07:08] LABS: Immature Granulocytes 3 % (0-9); Myelocytes % 1 % (0-1); Neutrophil % 92 % (38-83)
[2016-12-02 07:09] LABS: Add Path Review? YES
[2016-12-02 09:34] LABS: Troponin I 6.43 ng/mL (<0.04)
[2016-12-02] MEDS: Aspirin EC Low Dose* 81 MG TAB.EC PO SCH (09:48)
[2016-12-02] MEDS: Omeprazole CAP* 20 MG PO SCH (09:48)
[2016-12-02] MEDS: predniSONE TAB* 20 MG PO SCH (09:48)
[2016-12-02] MEDS ORDERED: Potassium Phosphate IV* 15 MMOLE in NS 0.9% 250 ML* 250 ML IVPB ONE (10:31)
[2016-12-02] MEDS ORDERED: Metoprolol Tartrate IV* 1 MG/ML 5 ML VIAL IV STA (10:31)
[2016-12-02] MEDS ORDERED: Metoprolol Tartrate TAB* 25 MG PO ONE (10:32)
--- NOTE | 2016-12-02 10:48 | PN ---
Subjective Date of Service: 12/02/16 Interval History: . Discussed case with Dr. Hope. Covering him today and tomorrow. Interviewed and examined patient at bedside. Patient is feeling well. Smiling and joking. Denies pain, but some soreness in epigastrum upon palpation. Moving to chair, but still winded. Did well with lasix, breathing improved overnight. Repleting electrolytes. Following labs Noted tachycardia; getting IV Amio for rapid AF (new) Cardiology consult requested; non-urgent What is the proper follow up and combination of amio (loading now) and beta jessica. Echo results reviewed from yesterday; + depressed EF. MRCP results reviewed with patient; no clear evidence for biliary obstruction or ductal dilitation. Discussed WBC (no fevers) ; patient is on steroids; dose being tapered; unusual for steroids alone to cause WBC into 30's. Presentation was certainly consistent with septic shock secondary to E. Coli ( E. Coli bacteremia noted) ; patient on IV antibiotics as directed by ID consultation. Patient describes potentially eating contaminated spinach ~ 11/23/16, which has been linked to E. Coli in many cases historically. Incubation period usually 3- 4 days, which is about right for this presentation. reference: https://www.cdc.gov/ecoli/2005/january/qa.htm Family History: Unchanged from Admission Social History: Unchanged from Admission Past Medical History: Unchanged from Admission Objective Active Medications: . Albuterol (Ventolin 2.5 Mg/3 Ml Neb.Malini*) 2.5 mg INH Q6H PRN PRN Reason: SOB/WHEEZING Last Admin: 12/01/16 10:53 Dose: 2.5 mg Aspirin (Aspirin Ec Low Dose*) 81 mg PO DAILY [facility] Last Admin: 12/02/16 09:48 Dose: 81 mg Calcium Carbonate (Tums*) 500 mg PO Q4H PRN PRN Reason: INDIGESTION Heparin Sodium (Porcine) (Heparin Vial(*)) 5,000 units SUBCUT Q8HR [facility] Last Admin: 12/02/16 06:26 Dose: 5,000 units Lactated Ringer's (Lactated Ringers 1000 Ml Bag*) 1,000 mls @ 0 mls/hr IV PER RATE [facility] PRN Reason: KVO Ceftriaxone Sodium 1,000 mg/ (Sodium Chloride) 50 mls @ 200 mls/hr IVPB Q24H [facility] Last Admin: 12/01/16 19:26 Dose: 200 mls/hr Metronidazole/Sodium Chloride (Flagyl 500 Mg Ivpb*) 500 mg in 100 mls @ 100 mls /hr IVPB Q8H [facility] Last Admin: 12/02/16 09:48 Dose: 100 mls/hr Potassium Phosphate 15 mmole/ (Sodium Chloride) 255 mls @ 42 mls/hr IVPB ONCE ONE Stop: 12/02/16 16:35 Amiodarone HCl (Nexterone 360 Mg/200 Ml Ivpremix*) 360 mg in 200 mls @ 16.666 mls/hr IV PER RATE SHEILA PRN Reason: 0.5 MG/MIN Lorazepam (Ativan Inj*) 0.5 mg IV PUSH Q4H PRN PRN Reason: ANXIETY Metoprolol Tartrate (Lopressor Tab*) 25 mg PO ONCE ONE Stop: 12/02/16 10:33 Morphine Sulfate (Morphine Inj (Syringe)*) 2 mg IV Q4H PRN PRN Reason: PAIN Last Admin: 12/01/16 03:45 Dose: 2 mg Omeprazole (Prilosec Cap*) 20 mg PO DAILY [facility] Last Admin: 12/02/16 09:48 Dose: 20 mg Prednisone (Deltasone Tab*) 20 mg PO DAILY [facility] Stop: 12/04/16 09:01 Last Admin: 12/02/16 09:48 Dose: 20 mg Prochlorperazine Edisylate (Compazine Inj*) 5 mg IV Q6H PRN PRN Reason: NAUSEA/VOMITING . Vital Signs 12/01/16 12/01/16 12/01/16 10:55 11:00 12:00 Temperature 98.4 F Pulse Rate 85 81 Respiratory 26 23 24 Rate Blood Pressure 153/129 139/89 (mmHg) O2 Sat by Pulse 96 96 Oximetry 12/01/16 12/01/16 12/01/16 13:00 13:40 13:51 Temperature 99.2 F 99.2 F Pulse Rate 101 100 Respiratory 30 28 24 Rate Blood Pressure 160/93 (mmHg) O2 Sat by Pulse 90 89 Oximetry Oxygen Devices in Use Now: Nasal Cannula Appearance: NAD at this time. A&O x 3 Eyes: No Scleral Icterus Ears/Nose/Mouth/Throat: Clear Oropharnyx Neck: Trachea Midline Respiratory: Symmetrical Chest Expansion and Respiratory Effort, - - some rales Abdominal: - - + epigastric Lymphatic: No Cervical Adenopathy Extremities: - - 1+ lower edema; decreased from previously reported. Skin: No Rash or Ulcers Neurological: Alert and Oriented x 3 Lines/Tubes/Other Access: Clean, Dry and Intact Peripheral IV, Clean, Dry and Intact Central Line - L IJ Nutrition: Taking PO's Result Diagrams: 12/03/16 05:33 12/03/16 05:33 Additional Lab and Data: . Microbiology and Other Data: Microbiology 11/28/16 17:44 Nasal Screen MRSA (PCR)(STELLA) - Final Nasal Mrsa Negative Assess/Plan/Problems-Billing Assessment: 71 yo M p/w multisystem organ failure in setting of septic shock secondary to E. Coli bacteremia. Current Meds: - Albuterol (Ventolin) 2.5 mg INH Q6H PRN SOB/WHEEZING - Aspirin (Aspirin Ec Low Dose) 81 mg PO DAILY - Calcium Carbonate (Tums) 500 mg PO Q4H PRN INDIGESTION - Heparin 5,000 units SUBCUT Q8HR - LR KVO - Ceftriaxone 1,000 mgQ24H - Metronidazole 500 mg IVPB Q8H - Potassium Phosphate 15 mmole IV once - Amiodarone 0.5 MG/MIN - Lorazepam (Ativan Inj) 0.5 mg IV PUSH Q4H PRN ANXIETY - Metoprolol Tartrate (Lopressor Tab) 25 mg PO - Morphine Sulfate (Morphine Inj (Syringe)) 2 mg IV Q4H PRN PAIN - Omeprazole (Prilosec Cap) 20 mg PO DAILY - Prednisone (Deltasone Tab) 20 mg PO DAILY - Prochlorperazine Edisylate (Compazine Inj) 5 mg IV Q6H PRN NAUSEA/VOMITING - Patient Problems (1) Shock Current Visit: Yes Status: Acute Priority: High Code(s): R57.9 - SHOCK, UNSPECIFIED Comment: - Multisystem organ failure - BETSY - Shock liver... - Encephalopathy... - Cardiac ischemia (NSTEMI)... ...All secondary to poor organ perfusion, in turn secondary to E. Coli septicemia/bactermia. - Was on pressors at high doses; now off. (2) E coli bacteremia Current Visit: Yes Status: Acute Priority: High Code(s): R78.81 - BACTEREMIA Comment: - following blood cultures + cultures 11/28/16; repeat today. - repeat cultures ordered. - check stool cultures (? food poisoning/contaminated spinach with E. Coli?) (3) Acute kidney failure Current Visit: Yes Status: Acute Priority: High Comment: - ATN from poor renal perfusion - slowly improving - no stated history of renal failure (4) Shock liver Current Visit: Yes Status: Acute Code(s): K72.00 - ACUTE AND SUBACUTE HEPATIC FAILURE WITHOUT COMA SNOMED Code(s): 345763532 (5) NSTEMI (non-ST elevated myocardial infarction) Current Visit: Yes Status: Acute Code(s): I21.4 - NON-ST ELEVATION (NSTEMI) MYOCARDIAL INFARCTION Comment: - trop peaked at 16 - supply-demand mismatch noted - ischemic workup recommended after acute illness - tachycardia (AF) noted; on ami - adding BB. - cardiology consult requested; Dr. Penn contacted - denies chest pain at this time - BP ok now; off pressors > 24 hours. - ASA (6) Ischemic cardiomyopathy Current Visit: Yes Status: Acute Priority: High Code(s): I25.5 - ISCHEMIC CARDIOMYOPATHY Comment: - TTE on 11/28/2016 shows EF 30-35% - on ASA - starting BB today - ischemic workup in near future?; cardiology consult requested (7) Hypophosphatemia Current Visit: Yes Status: Acute Priority: Medium Code(s): E83.39 - OTHER DISORDERS OF PHOSPHORUS METABOLISM Comment: - follow and replete (8) Hypokalemia Current Visit: Yes Status: Acute Priority: Medium Code(s): E87.6 - HYPOKALEMIA Comment: - follow and replete
[2016-12-02] MEDS: Amiodarone 360 MG IVPREMIX* 360 MG/200 ML BAG IV SCH (12:00)
[2016-12-02] MEDS: Metoprolol Tartrate TAB* 25 MG PO SCH (18:26)
[2016-12-02] MEDS: cefTRIAXone* 1 GM in NS 0.9% 50 ML BAG IVPB SCH (19:58)
[2016-12-03] MEDS: Metoprolol Tartrate TAB* 25 MG PO SCH ×5 (00:09→23:26)
--- NOTE | 2016-12-03 00:41 | CONS ---
CC: Hospitalist Service; Reji Paz MD * CARDIOLOGY CONSULT REPORT: DATE OF CONSULT: 12/02/16 HISTORY OF PRESENT ILLNESS: The patient is a 71-year-old male patient who was admitted on 11/28/16 with septic shock with E. coli bacteremia and also was found to have hepatitis, pancreatitis and was seen by Infectious Disease. He essentially had multi-organ failure with significantly abnormal labs for his liver profile. Renal kidney functions were significantly abnormal and he had an echocardiogram that was actually done on 11/28/16. At that time, his left ventricular systolic function was reported to be 30% to 35% and he also was found to have mild mitral insufficiency, trace tricuspid insufficiency, no significant pericardial effusion. The patient was treated for his septic shock and multi-organ failure. Cardiology consult was further requested because the patient had an episode of rapid atrial fibrillation, he is still in it. Fever bailey, he improved. He is on antibiotic treatment. GI is in consult. The source is not immediately clear. He passed a gallbladder stone, possible; could be alcoholic pancreatitis, possible. Cardiac bailey, there is some history of cardiac catheterization, but according to the patient and the , he had no need for angioplasty or stenting. He had no history of congestive heart failure in the past. He does have history of systemic arterial hypertension and obstructive sleep apnea on CPAP. He had history of hyperlipidemia, hiatal hernia, appendectomy. Currently, he gives no fever, no chills. His initial presentation was with abdominal pain and fever. He has no chest pain, no orthopnea, no PND's, no dizziness, no syncope is appreciated. Cardiac bailey, his troponin did peak at 16, it did go down to 6.43 at 6:33 this morning. His potassium is low at 3.2, which I strongly recommend replenishing. His other labs were grossly abnormal including his LFT's; AST 283, ALT 354. His lipase was 2765, lactic acid 3.5 on the 10th. White blood cell significantly elevated 35,000 today this morning, hemoglobin 12.6, and platelets are low at 82,000. PAST MEDICAL HISTORY: As outlined above. PAST SURGICAL HISTORY: As outlined above. MEDICATIONS: Medications at the present time include: 1. Ventolin inhaler. 2. He is on aspirin 81 mg daily. 3. Ceftriaxone 1000 mg IV q.24 hours. 4. Heparin 5000 units subcu q.8 hours. 5. He is also on Flagyl 500 mg IV q.8 hours. 6. Morphine 2 mg IV q.4 hours p.r.n. 7. Prilosec 20 mg daily. 8. Prednisone 20 mg daily. ALLERGIES: No known drug allergies. FAMILY HISTORY: No family history of premature coronary artery disease. SOCIAL HISTORY: No history of smoking. There is history of drinking 2 drinks a day. REVIEW OF SYSTEMS: Review of all other systems essentially is negative. PHYSICAL EXAM: On exam, he is currently awake, alert, and oriented. He feels better, he is not in acute distress. His vitals: Blood pressure 140/90, pulse 135, appears to be in atrial fibrillation. Head and neck exam: Normocephalic, atraumatic. Head, ear, nose, and throat essentially benign. Neck: Supple. JVP is not elevated. No carotid bruits. No masses in the neck is appreciated. Chest is clear to auscultation. No rales, no wheeze, no added sound is appreciated. Abdomen: Benign, soft, positive bowel sounds. Extremities: No edema, no cyanosis, and no clubbing. Skin Exam: Normal. Psych: Normal affect and mood. ASSOCIATE BUSINESS ANALYST: No focal deficit is appreciated. DIAGNOSTIC STUDIES/LAB DATA: His labs today; white blood cell 35,000, hemoglobin 12.6, hematocrit 37, platelets 82,000. His INR 1.21. His sodium 142 , potassium 3.2, chloride 113, total CO2 of 19. BUN 56, creatinine 2.27. Troponin peaked at 16.60. AST has gone down to 68, ALT 175. His echocardiogram is as outlined above. IMPRESSION: The patient is a 71-year-old male patient with: 1. Presentation with septic shock, E. coli bacteremia, on antibiotic treatment. 2. Significant pancreatitis and hepatitis, improving. 3. Cardiomyopathy with EF of 30% to 35%, could be related to his multiorgan failure and sepsis, could be related to alcoholism or could be cardiomyopathy ischemic in nature, to be further evaluated. 4. Systemic arterial hypertension. 5. Hyperlipidemia. 6. Obstructive sleep apnea. 7. Atrial fibrillation, which is probably related to his multiorgan system failure, although it is improving. He is tachycardic. 8. Mild mitral insufficiency. 9. Abnormal EKG. 10. Renal failure, acute, improving. 11. Hypokalemia. PLAN: The patient is currently in the intensive care unit. He is recuperating hopefully from his bacteremia with antibiotic response and follow up accordingly as per Dr. Coyne from ID standpoint. From GI standpoint, with his pancreatitis, he also as well followed up for that regard. For his cardiomyopathy, it is too early to tell. His left ventricular systolic function needs definitely to be followed up. Once his overall clinical status is more stabilized, we will follow up a limited echo and his left ventricular systolic function. SALINA inhibitor on hold as well as ARBs unused in light of his acute renal insufficiency as well as digoxin, be very careful with that. He is not overtly in congestive heart failure. At the present time, for his atrial fibrillation, I do recommend continuing the amio IV. P.r.n. beta jessica treatment can be used IV or p.o., and definitely keep a very close eye on his renal function and electrolytes with replenishing his potassium aggressively. Any further recommendations will be pending his clinical outcome and we will follow him closely. TIME SPENT: More than half of the 60 to 65 plus minutes was in education, counseling, evaluating the above, and making further recommendations. At one point, once he is more stabilized, ischemic cardiac workup will be further pursued. [id number]/[facility] #: [id number] SHELIA
[2016-12-03] MEDS: metroNIDAZOLE IV 500 MG/100ML* 500 MG/100 ML BAG IVPB SCH ×2 (02:20→08:38)
[2016-12-03] MEDS ORDERED: Amiodarone 360 MG IVPREMIX* 360 MG/200 ML BAG IV ONE (04:52)
[2016-12-03] MEDS: Amiodarone 360 MG IVPREMIX* 360 MG/200 ML BAG IV SCH ×2 (04:57→16:10)
[2016-12-03] MEDS: Heparin VIAL(*) 5000 UNITS/ML VIAL (FIVE THOUSAND) SUBCUT SCH ×3 (05:38→21:36)
[2016-12-03 05:45] LABS: Hematocrit 38 % (42-52); Hemoglobin 12.6 g/dl (14.0-18.0); Mean Corpuscular HGB Conc 33 g/dl (31-36); Mean Corpuscular Hemoglobin 32 pg (27-31); Mean Corpuscular Volume 94 fL (80-94); Mean Platelet Volume 9 um3 (7.4-10.4); Red Blood Count 4.01 10^6/ul (4.0-5.4); Red Cell Distribution Width 14 % (10.5-15)
[2016-12-03 05:56] LABS: Add Diff/Slide Review? Manual Diff Added; Albumin 2.8 g/dL (3.2-5.2); BUN/Creatinine Ratio 27.1 (8-20); Calcium 7.3 mg/dL (8.6-10.3); Comments Flag Yes; EGFR African American 47.8 (>60); EGFR Non-African American 37.1 (>60); Globulin 2.4 g/dL (2-4); Magnesium 1.8 mg/dL (1.9-2.7); Phosphorus 2.7 mg/dL (2.5-5.0); Total Bilirubin 1.6 mg/dL (0.2-1.0); Total Protein 5.2 g/dL (6.4-8.9)
[2016-12-03 06:31] LABS: Immature Granulocytes 11 % (0-9); Metamyelocytes % 2 % (0-2); Neutrophil % 78 % (38-83); RBC Morphology Normal (Normal)
[2016-12-03] MEDS ORDERED: Perflutren Lipid Microsphere* 3 ML VIAL ONE (07:19)
[2016-12-03] MEDS: predniSONE TAB* 20 MG PO SCH (08:38)
[2016-12-03] MEDS: Omeprazole CAP* 20 MG PO SCH (08:38)
[2016-12-03] MEDS: Aspirin EC Low Dose* 81 MG TAB.EC PO SCH (08:38)
[2016-12-03] MEDS: amLODIPine TAB* 5 MG PO SCH (11:13)
--- NOTE | 2016-12-03 11:22 | ECHO ---
Patient: ELYSE HANLEY [facility] Rec#: [id number] : 1945 Date: 12/03/2016 Age: 71y Height: 175.26 cm / 69.0 in Weight: 81.65 kg / 180.0 lbs Sex: M BSA: 1.98 Room#: [facility] Admit Date#: 11/28/2016 Type: Inpatient Referring: Scout Gray MD Reading: Reji Paz MD Classified Advertising Clerk: Macrina BenzGILLIAN CC: Gino Meredith MD Transthoracic Echocardiogram Indication: NSTEMI, shock. BP: 148/80 HR: 68 Rhythm: NSR with PACs Findings History: NSTEMI 11/28/16, CAD, HTN, HLD, FAMILIA on CPAP. This is a LIMITED study to reassess LVEF. Technical Comments: The study quality is fair. The study is technically limited due to poor apical windows. Completed at 0810. Left Ventricle: The left ventricular chamber size is normal. Moderate global hypokinesis of the left ventricle is observed. There is moderately decreased left ventricular systolic function. The estimated ejection fraction is 35-40%. Right Ventricle: The right ventricular global systolic function is moderately reduced. Contrast: Definity was used to optimize study. 5 mL of diluted Definity was utilized. Intravenous contrast was used to enhance endocardial border definition. Summary: There are no significant changes when compared to the previous study done on 11/29/2016, no overt lv ef sig changes although lv ef then was 30-35% and now 35-40% Conclusions The study is technically limited due to poor apical windows. Completed at 0810. The left ventricular chamber size is normal. Moderate global hypokinesis of the left ventricle is observed. There is moderately decreased left ventricular systolic function. The estimated ejection fraction is 35-40%. There are no significant changes when compared to the previous study done on 11/29/2016, no overt lv ef sig changes although lv ef then was 30-35% and now 35-40%
[2016-12-03] MEDS ORDERED: Magnesium Sulfate 4 GM IV IVPB ONE (13:00)
[2016-12-03] MEDS ORDERED: Potassium Chlor TAB* 20 MEQ TAB.ER PO ONE ×2 (13:00→20:00)
--- NOTE | 2016-12-03 14:52 | PN ---
Progress Note - Progress Note Date of Service: 12/03/16 SOAP: Subjective: CC: bacteremia HPI: 71 year old man with E.coli bacteremia, hepatitis and pancreatitis. Out of bed today, feels well. Formed stool today, eating more. No fever, rash, or diarrhea. Objective: [] Vital Signs Temp 37.2 C 12/03/16 14:00 Pulse 71 12/03/16 14:00 Resp 16 12/03/16 14:00 BP 157/86 12/03/16 14:00 Pulse Ox 99 12/03/16 14:00 Intake & Output 12/02/16 12/03/16 12/03/16 18:59 06:59 18:59 Intake Total 954 1373.6 1138 Output Total 3275 3550 1999 Balance -2321 -2176.4 -862 Weight 207 lb 3.752 oz Intake: IV Fluids 63 234 LR 234 NS (0.9%) 63 IVPB 228 701 LR 155 NS (0.9%) 228 546 Medicated IV 123 272.6 124 Amiodarone 123 272.6 124 Oral 540 400 780 Output: [place] 3275 3550 1999 Other: Estimated Void Medium Date of Last Bowel 12/03/2016 Movement # Bowel Movements 1 1 Estimated Stool Amount Medium Small Gen: no distress Neuro:AAOx3 HEENT:PERRL, MMM Neck:supple Heart:RRR no murmur Lungs:CTA BL Abd:+BS NTND soft Skin: no rash MSK: no spine tenderness Laboratory Results - last 24 hr 12/03/16 12/03/16 05:33 05:33 WBC 31.0 H RBC 4.01 Hgb 12.6 L Hct 38 L MCV 94 MCH 32 H MCHC 33 RDW 14 Plt Count 89 L MPV 9 Immature Gran % (Auto) 11 H Absolute Neuts (auto) 26.8 H Absolute Lymphs (auto) 1.6 Absolute Monos (auto) 2.4 H Absolute Eos (auto) 0.1 Absolute Basos (auto) 0.1 Absolute Nucleated RBC 0.02 Neutrophils % 78 Band Neutrophils % 9 H Lymphocytes % 5 L Monocytes % 6 Metamyelocytes % 2 Nucleated RBCs/100 WBC 1 H Normal RBC Morphology Normal Sodium 141 Potassium 3.0 L Chloride 111 Carbon Dioxide 22 Anion Gap 8 BUN 49 H Creatinine 1.81 H Est GFR ( Amer) 47.8 Est GFR (Non-Af Amer) 37.1 BUN/Creatinine Ratio 27.1 H Glucose 116 H Calcium 7.3 L Phosphorus 2.7 Magnesium 1.8 L Total Bilirubin 1.60 H AST 32 ALT 116 H Alkaline Phosphatase 272 H Total Protein 5.2 L Albumin 2.8 L Globulin 2.4 Albumin/Globulin Ratio 1.2 Assessment: 1. E. coli bacteremia ?ETEC as suggested by Dr Gray 2. BETSY, resolving 3. hepatitis, improving 4. NICM, EF 35% Plan: 1. DC flagyl, continue ceftriaxone through the weekend. DC IJ (ordered). Discussed with Dr Gray
[2016-12-03] MEDS ORDERED: Potassium Chlor TAB* 10 MEQ TAB.ER PO ONE ×2 (16:25)
--- NOTE | 2016-12-03 16:25 | PN ---
Subjective Date of Service: 12/03/16 Interval History: . doing well still in/out of AF continuing Amio loading as per cardiology --> as soon as that is done, can go to floor (ordered) dc flagyl as per ID (agree) --> no localization or signs of focal infection. Still presumed E Coli ingestion (see assessment on 12/02). DC fluids amlodipine for HTN encourage PO intake (note Cr went up a bit -- got lasix 12/01-12/02 o/n) PT encouraged. dc respiratory therapies as per RT driven protocol Family History: Unchanged from Admission Social History: Unchanged from Admission Past Medical History: Unchanged from Admission Objective Active Medications: . Albuterol (Ventolin 2.5 Mg/3 Ml Neb.Malini*) 2.5 mg INH Q6H PRN PRN Reason: SOB/WHEEZING Last Admin: 12/01/16 10:53 Dose: 2.5 mg Amlodipine Besylate (Norvasc Tab*) 10 mg PO DAILY [facility] Last Admin: 12/03/16 11:13 Dose: 10 mg Aspirin (Aspirin Ec Low Dose*) 81 mg PO DAILY [facility] Last Admin: 12/03/16 08:38 Dose: 81 mg Calcium Carbonate (Tums*) 500 mg PO Q4H PRN PRN Reason: INDIGESTION Heparin Sodium (Porcine) (Heparin Vial(*)) 5,000 units SUBCUT Q8HR [facility] Last Admin: 12/03/16 14:22 Dose: 5,000 units Ceftriaxone Sodium 1,000 mg/ (Sodium Chloride) 50 mls @ 200 mls/hr IVPB Q24H [facility] Last Admin: 12/02/16 19:58 Dose: 200 mls/hr Amiodarone HCl (Nexterone 360 Mg/200 Ml Ivpremix*) 360 mg in 200 mls @ 16.666 mls/hr IV .CONTINUOUS SHEILA PRN Reason: 0.5 MG/MIN Stop: 12/04/16 12:00 Last Admin: 12/03/16 16:10 Dose: 16.666 mls/hr Lorazepam (Ativan Inj*) 0.5 mg IV PUSH Q4H PRN PRN Reason: ANXIETY Metoprolol Tartrate (Lopressor Tab*) 12.5 mg PO Q6HR [facility] Last Admin: 12/03/16 11:14 Dose: 12.5 mg Morphine Sulfate (Morphine Inj (Syringe)*) 2 mg IV Q4H PRN PRN Reason: PAIN Last Admin: 12/01/16 03:45 Dose: 2 mg Omeprazole (Prilosec Cap*) 20 mg PO DAILY [facility] Last Admin: 12/03/16 08:38 Dose: 20 mg Prochlorperazine Edisylate (Compazine Inj*) 5 mg IV Q6H PRN PRN Reason: NAUSEA/VOMITING . Vital Signs 12/02/16 12/02/16 12/02/16 17:00 18:00 19:00 Temperature 99.4 F 99.5 F 99.8 F Pulse Rate 119 128 72 Respiratory 23 27 24 Rate Blood Pressure 159/121 145/94 (mmHg) O2 Sat by Pulse 95 93 96 Oximetry 12/02/16 12/02/16 12/02/16 20:00 20:26 20:48 Temperature 99.9 F 99.8 F Pulse Rate 129 120 122 Respiratory 18 24 12 Rate Blood Pressure 143/97 (mmHg) O2 Sat by Pulse 99 95 99 Oximetry Oxygen Devices in Use Now: Nasal Cannula Appearance: NAD Eyes: No Scleral Icterus Ears/Nose/Mouth/Throat: Clear Oropharnyx Neck: Trachea Midline Respiratory: Symmetrical Chest Expansion and Respiratory Effort Cardiovascular: NL Sounds; No Murmurs; No JVD Abdominal: NL Sounds; No Tenderness; No Distention Lymphatic: No Cervical Adenopathy Extremities: No Edema Skin: No Rash or Ulcers Neurological: Alert and Oriented x 3 Lines/Tubes/Other Access: Clean, Dry and Intact Peripheral IV Nutrition: Taking PO's Result Diagrams: 12/03/16 05:33 12/03/16 05:33 Additional Lab and Data: . Microbiology and Other Data: Microbiology 11/28/16 17:44 Nasal Screen MRSA (PCR)(STELLA) - Final Nasal Mrsa Negative Assess/Plan/Problems-Billing Assessment: 71 yo M p/w multisystem organ failure in setting of septic shock secondary to E. Coli bacteremia. Current Meds: - Albuterol (Ventolin) 2.5 mg INH Q6H PRN SOB/WHEEZING - Aspirin (Aspirin Ec Low Dose) 81 mg PO DAILY - Calcium Carbonate (Tums) 500 mg PO Q4H PRN INDIGESTION - Heparin 5,000 units SUBCUT Q8HR - LR KVO - Ceftriaxone 1,000 mg Q24H - Metronidazole 500 mg IVPB Q8H (DC 12/03) - Potassium Phosphate 15 mmole IV once - Amiodarone 0.5 MG/MIN --> ongoing (12/03/16) - Lorazepam (Ativan Inj) 0.5 mg IV PUSH Q4H PRN ANXIETY - Metoprolol Tartrate (Lopressor Tab) 25 mg PO - Morphine Sulfate (Morphine Inj (Syringe)) 2 mg IV Q4H PRN PAIN - Omeprazole (Prilosec Cap) 20 mg PO DAILY - Prednisone (Deltasone Tab) 20 mg PO DAILY - Prochlorperazine Edisylate (Compazine Inj) 5 mg IV Q6H PRN NAUSEA/VOMITING - Patient Problems (1) Shock Current Visit: Yes Status: Acute Priority: High Code(s): R57.9 - SHOCK, UNSPECIFIED Comment: - Multisystem organ failure - BETSY - Shock liver... - Encephalopathy... - Cardiac ischemia (NSTEMI)... ...All secondary to poor organ perfusion, in turn secondary to E. Coli septicemia/bactermia. - Was on pressors at high doses; now off. (2) E coli bacteremia Current Visit: Yes Status: Acute Priority: High Code(s): R78.81 - BACTEREMIA Comment: - following blood cultures + cultures 11/28/16; repeat today. - repeat cultures ordered. - check stool cultures (? food poisoning/contaminated spinach with E. Coli?) (3) Acute kidney failure Current Visit: Yes Status: Acute Priority: High Comment: - ATN from poor renal perfusion - slowly improving - no stated history of renal failure (4) Shock liver Current Visit: Yes Status: Acute Code(s): K72.00 - ACUTE AND SUBACUTE HEPATIC FAILURE WITHOUT COMA SNOMED Code(s): 110696220 (5) NSTEMI (non-ST elevated myocardial infarction) Current Visit: Yes Status: Acute Code(s): I21.4 - NON-ST ELEVATION (NSTEMI) MYOCARDIAL INFARCTION Comment: - trop peaked at 16 - supply-demand mismatch noted - ischemic workup recommended after acute illness - tachycardia (AF) noted; on ami - adding BB. - cardiology consult requested; Dr. Penn contacted - denies chest pain at this time - BP ok now; off pressors > 24 hours. - ASA (6) Ischemic cardiomyopathy Current Visit: Yes Status: Acute Priority: High Code(s): I25.5 - ISCHEMIC CARDIOMYOPATHY Comment: - TTE on 11/28/2016 shows EF 30-35% - on ASA - starting BB today - ischemic workup in near future?; cardiology consult requested (7) Hypophosphatemia Current Visit: Yes Status: Acute Priority: Medium Code(s): E83.39 - OTHER DISORDERS OF PHOSPHORUS METABOLISM Comment: - follow and replete (8) Hypokalemia Current Visit: Yes Status: Acute Priority: Medium Code(s): E87.6 - HYPOKALEMIA Comment: - follow and replete
[2016-12-03] MEDS: cefTRIAXone* 1 GM in NS 0.9% 50 ML BAG IVPB SCH (19:48)
[2016-12-04] MEDS: Amiodarone 360 MG IVPREMIX* 360 MG/200 ML BAG IV SCH (04:15)
[2016-12-04 05:39] LABS: Hematocrit 41 % (42-52); Hemoglobin 13.9 g/dl (14.0-18.0); Mean Corpuscular HGB Conc 34 g/dl (31-36); Mean Corpuscular Hemoglobin 32 pg (27-31); Mean Corpuscular Volume 94 fL (80-94); Mean Platelet Volume 10 um3 (7.4-10.4); Red Blood Count 4.36 10^6/ul (4.0-5.4); Red Cell Distribution Width 14 % (10.5-15); White Blood Count 26.7 10^3/ul (3.5-10.8)
[2016-12-04 05:41] LABS: Add Diff/Slide Review? Slide Review Added; Comments Flag Yes
[2016-12-04] MEDS: Metoprolol Tartrate TAB* 25 MG PO SCH ×3 (05:44→21:16)
[2016-12-04] MEDS: Heparin VIAL(*) 5000 UNITS/ML VIAL (FIVE THOUSAND) SUBCUT SCH ×3 (05:44→21:15)
[2016-12-04 05:48] LABS: Albumin 3.1 g/dL (3.2-5.2); BUN/Creatinine Ratio 28.4 (8-20); Calcium 8.3 mg/dL (8.6-10.3); EGFR African American 63.7 (>60); EGFR Non-African American 49.5 (>60); Globulin 2.8 g/dL (2-4); Magnesium 2.3 mg/dL (1.9-2.7); Phosphorus 2.7 mg/dL (2.5-5.0); Potassium 3.5 mmol/L (3.5-5.0); Total Protein 5.9 g/dL (6.4-8.9)
[2016-12-04 05:49] LABS: Total Bilirubin 1.5 mg/dL (0.2-1.0)
[2016-12-04] MEDS: amLODIPine TAB* 5 MG PO SCH (09:02)
[2016-12-04] MEDS: Omeprazole CAP* 20 MG PO SCH (09:02)
[2016-12-04] MEDS: Aspirin EC Low Dose* 81 MG TAB.EC PO SCH (09:02)
--- NOTE | 2016-12-04 10:43 | PN ---
Progress Note - Progress Note Date of Service: 12/04/16 Note: CRITICAL CARE MEDICINE DATE: 12/04/16 TIME: 930 SUBJECTIVE: Patient seen and examined. PHYSICAL EXAM: Vital Signs: Reviewed. Neurologic: communicating well. HEENT: anicteric sclera, mmm Cardiovascular: distant, S1, S2 no gallop nor m appreciated. Respiratory: good breathing pattern, no rales Abdomen: soft, nt Extremities: warm Access: piv LABS: Reviewed. IMAGING: Reviewed. MEDICATIONS: Reviewed. ASSESSMENT: 71 M MSOF Septic shock sec to ecoli Acute pancreatitis Acute heptatitis Consumptive coagulaopathy of sepsis Stress cardiomyopathy and NSTEMI Acute hypoxic resp failure Acute renal failure with component of ATN Septic encephalopathy present on admission but resolved Relative adrenal insuff PLAN: Neurologic: tolerating well. Cardiovascular: Perfusing. Intravascular and interstitial fluid well/ afib, intermittent. inc bb. po amio, dc gtt. start low dose statin. cards f/u for potential cath /outpt needs. Respiratory: markedly better. oob. ambulate. is prn. Gastrointestinal: much better. po diet. outpt ppi. f/u labs Renal/Metabolic: much better overall. mobilize as able. Infectious Disease: on ceftriaxone. id f/u for course. Hematology: stable. asa. hsq Endocrine: stress dose steroids off. Musculoskeletal: oob, ambulate. Psych/Social: pt expressed understanding Supportive and preventative care as ordered. SUP: po VTE prophylaxis: heparin subq Disposition: to floor with tele. re-assemble teams come tuesday and sort dispo plans. Code Status: Full Critical Care Time: 30min Marry Hope DO
[2016-12-04] MEDS: Atorvastatin* 40 MG TAB PO SCH (17:38)
[2016-12-04] MEDS: cefTRIAXone* 1 GM in NS 0.9% 50 ML BAG IVPB SCH (19:55)
[2016-12-04] MEDS: Amiodarone TAB* 200 MG PO SCH (20:13)
[2016-12-05 05:32] LABS: Albumin 2.8 g/dL (3.2-5.2); BUN/Creatinine Ratio 25.8 (8-20); Calcium 8.2 mg/dL (8.6-10.3); EGFR African American 71.2 (>60); EGFR Non-African American 55.4 (>60); Globulin 2.6 g/dL (2-4); Potassium 3.4 mmol/L (3.5-5.0); Total Bilirubin 1.5 mg/dL (0.2-1.0); Total Protein 5.4 g/dL (6.4-8.9)
[2016-12-05] MEDS: Heparin VIAL(*) 5000 UNITS/ML VIAL (FIVE THOUSAND) SUBCUT SCH ×3 (05:37→22:18)
[2016-12-05] MEDS: Metoprolol Tartrate TAB* 25 MG PO SCH ×3 (05:37→22:18)
[2016-12-05] MEDS: Amiodarone TAB* 200 MG PO SCH ×2 (09:09→20:54)
[2016-12-05] MEDS: Omeprazole CAP* 20 MG PO SCH (09:10)
[2016-12-05] MEDS: Aspirin EC Low Dose* 81 MG TAB.EC PO SCH (09:10)
[2016-12-05] MEDS: Atorvastatin* 40 MG TAB PO SCH (15:36)
--- NOTE | 2016-12-05 16:15 | PN ---
Subjective Date of Service: 12/05/16 Interval History: Pt is feeling well. He states that he has been up and walking without any difficulty. He states his stools are soft. He denies any abdominal pain at this time. He states he was having abdominal discomfort when taking meds without food. Family History: Unchanged from Admission Social History: Unchanged from Admission Past Medical History: Unchanged from Admission Objective Active Medications: Albuterol (Ventolin 2.5 Mg/3 Ml Neb.Malini*) 2.5 mg INH Q6H PRN PRN Reason: SOB/WHEEZING Last Admin: 12/01/16 10:53 Dose: 2.5 mg Amiodarone HCl (Cordarone Tab*) 200 mg PO BID [facility] Last Admin: 12/05/16 09:09 Dose: 200 mg Aspirin (Aspirin Ec Low Dose*) 81 mg PO DAILY [facility] Last Admin: 12/05/16 09:10 Dose: 81 mg Atorvastatin Calcium (Lipitor*) 40 mg PO 1700 [facility] Last Admin: 12/05/16 15:36 Dose: 40 mg Calcium Carbonate (Tums*) 500 mg PO Q4H PRN PRN Reason: INDIGESTION Heparin Sodium (Porcine) (Heparin Vial(*)) 5,000 units SUBCUT Q8HR [facility] Last Admin: 12/05/16 15:36 Dose: 5,000 units Ceftriaxone Sodium 1,000 mg/ (Sodium Chloride) 50 mls @ 200 mls/hr IVPB Q24H [facility] Last Admin: 12/04/16 19:55 Dose: 200 mls/hr Lorazepam (Ativan Inj*) 0.5 mg IV PUSH Q4H PRN PRN Reason: ANXIETY Metoprolol Tartrate (Lopressor Tab*) 50 mg PO Q8HR [facility] Last Admin: 12/05/16 15:36 Dose: 50 mg Morphine Sulfate (Morphine Inj (Syringe)*) 2 mg IV Q4H PRN PRN Reason: PAIN Last Admin: 12/01/16 03:45 Dose: 2 mg Omeprazole (Prilosec Cap*) 20 mg PO DAILY [facility] Last Admin: 12/05/16 09:10 Dose: 20 mg Prochlorperazine Edisylate (Compazine Inj*) 5 mg IV Q6H PRN PRN Reason: NAUSEA/VOMITING Vital Signs 12/04/16 12/04/16 12/04/16 20:00 20:12 21:19 Temperature 97.9 F Pulse Rate 81 Respiratory 18 18 18 Rate Blood Pressure 148/94 (mmHg) O2 Sat by Pulse 100 94 Oximetry 12/05/16 12/05/16 12/05/16 00:19 04:14 07:56 Temperature 98.9 F 98.6 F 98.8 F Pulse Rate 73 72 69 Respiratory 20 20 16 Rate Blood Pressure 142/79 150/80 137/83 (mmHg) O2 Sat by Pulse 96 99 95 Oximetry 12/05/16 12/05/16 12/05/16 08:00 08:18 12:58 Temperature 98.6 F Pulse Rate 73 78 Respiratory 16 16 Rate Blood Pressure 150/92 (mmHg) O2 Sat by Pulse 97 99 Oximetry Oxygen Devices in Use Now: Nasal Cannula Appearance: Elderly male sitting up in bed, NAD Eyes: No Scleral Icterus Ears/Nose/Mouth/Throat: Mucous Membranes Moist Respiratory: Symmetrical Chest Expansion and Respiratory Effort, Clear to Auscultation Cardiovascular: NL Sounds; No Murmurs; No JVD, RRR, No Edema Abdominal: NL Sounds; No Tenderness; No Distention Extremities: No Clubbing, Cyanosis Skin: No Rash or Ulcers, No Nodules or Sclerosis Neurological: Alert and Oriented x 3 Result Diagrams: 12/04/16 05:24 12/05/16 05:01 Additional Lab and Data: . Microbiology and Other Data: Microbiology 11/28/16 17:44 Nasal Screen MRSA (PCR)(STELLA) - Final Nasal Mrsa Negative Assess/Plan/Problems-Billing Mr Diggs is a 71 yo M who presented to the ER with c/o abdominal and was found to have multisystem organ failure in setting of septic shock secondary to E. Coli bacteremia. - Patient Problems (1) E coli bacteremia Current Visit: Yes Status: Acute Code(s): R78.81 - BACTEREMIA SNOMED Code( s): 003642817071 Comment: Unclear where the E coli came from. Follow up BC negative. Stool culture negative. The patient remains on Ceftriaxone. Follow up with Dr. Coyne tomorrow for further recommendations. (2) Shock Current Visit: Yes Status: Acute Code(s): R57.9 - SHOCK, UNSPECIFIED SNOMED Code(s): 21505918 Comment: The patient had multisystem organ failure with acute renal failure, shock liver, encephalopathy, cardiac ischemia secondary to poor organ perfusion secondary to E coli septicemia/bacteremia. Now resolved. (3) Shock liver Current Visit: Yes Status: Acute Code(s): K72.00 - ACUTE AND SUBACUTE HEPATIC FAILURE WITHOUT COMA SNOMED Code(s): 511271804 Comment: Improving. Secondary to marked hypotension. (4) NSTEMI (non-ST elevated myocardial infarction) Current Visit: Yes Status: Acute Code(s): I21.4 - NON-ST ELEVATION (NSTEMI) MYOCARDIAL INFARCTION SNOMED Code(s): 813438030 Comment: Troponin peaked at 16. Type II NSTEMI- he will need outpatient ischemic work up. Continue ASA, metoprolol and lipitor. (5) Ischemic cardiomyopathy Current Visit: Yes Status: Acute Code(s): I25.5 - ISCHEMIC CARDIOMYOPATHY SNOMED Code(s): 207798648 Comment: TTE on 11/28/2016 shows EF 30-35%. Will need outpatient cardiology evaluation for ischemic work up. Continue metoprolol tartrate. (6) Acute kidney failure Current Visit: Yes Status: Acute Comment: Likely ATN from poor perfusion. Renal function is improving and has almost normalized. (7) Pancreatitis Current Visit: Yes Status: Acute Code(s): K85.90 - ACUTE PANCREATITIS WITHOUT NECROSIS OR INFECTION, UNSP SNOMED Code(s): 18924362 Comment: Resolved. Possibly secondary to EtOH use vs secondary to shock. (8) FAMILIA (obstructive sleep apnea) Current Visit: Yes Status: Acute Code(s): G47.33 - OBSTRUCTIVE SLEEP APNEA ( ADULT) (PEDIATRIC) SNOMED Code(s): 82626739 Comment: Continue CPAP. (9) DVT prophylaxis Current Visit: Yes Status: Acute Code(s): OJJ3115 - SNOMED Code(s): 894519144 Comment: SQ heparin (10) Full code status Current Visit: Yes Status: Acute Code(s): Z78.9 - OTHER SPECIFIED HEALTH STATUS SNOMED Code(s): 884813511
[2016-12-05] MEDS ORDERED: Potassium Chlor TAB* 20 MEQ TAB.ER PO ONE (16:32)
[2016-12-05] MEDS: cefTRIAXone* 1 GM in NS 0.9% 50 ML BAG IVPB SCH (20:55)
[2016-12-06] MEDS: Metoprolol Tartrate TAB* 25 MG PO SCH ×3 (06:36→21:06)
[2016-12-06] MEDS: Heparin VIAL(*) 5000 UNITS/ML VIAL (FIVE THOUSAND) SUBCUT SCH ×3 (06:36→21:05)
[2016-12-06] MEDS: Omeprazole CAP* 20 MG PO SCH (07:53)
[2016-12-06] MEDS: Amiodarone TAB* 200 MG PO SCH ×2 (07:53→21:04)
[2016-12-06] MEDS: Aspirin EC Low Dose* 81 MG TAB.EC PO SCH (07:53)
--- NOTE | 2016-12-06 09:48 | PN ---
Progress Note - Progress Note Date of Service: 12/06/16 SOAP: Subjective: CC: leukocytosis HPI: 71 year old man with E.coli bacteremia, hepatitis and pancreatitis. 5 laps around unit today, eating more. Having soft stools, some more formed, no mucous or abd pain. No fever, rash. Objective: [] Vital Signs Temp 36.7 C 12/06/16 07:52 Pulse 65 12/06/16 07:52 Resp 16 12/06/16 07:58 BP 142/69 12/06/16 07:52 Pulse Ox 98 12/06/16 07:52 Intake & Output 12/05/16 12/06/16 12/06/16 18:59 06:59 18:59 Intake Total 760 375 360 Output Total 725 1975 325 Balance 35 -1600 35 Intake: IV Fluids 20 ABX - CEFTRIAXONE 20 IVPB 55 ABX - CEFTRIAXONE 55 Oral 760 300 360 Output: Urine 725 1975 325 Other: Date of Last Bowel 12/06/16 Movement # Bowel Movements 2 1 Estimated Stool Amount Medium Medium # Voids 1 Gen: no distress Neuro:AAOx3 HEENT:PERRL, MMM Neck:supple Heart:RRR no murmur Lungs:CTA BL Abd:+BS NTND soft Skin: no rash MSK: no spine tenderness Microbiology 12/02/16 11:48 Aerobic Blood Culture - Preliminary Blood Venous No Growth Day 3 Anaerobic Blood Culture - Preliminary No Growth Day 3 Blood Culture - Final 12/02/16 11:35 Aerobic Blood Culture - Preliminary Blood Line No Growth Day 3 Anaerobic Blood Culture - Preliminary No Growth Day 3 Blood Culture - Final Assessment: 1. E. coli bacteremia ?ETEC vs biliary source, MRCP negative. 2. BETSY, resolving 3. hepatitis, improving 4. NICM, EF 35% Plan: 1. Abx day 12/30, will change to amox 500 mg po tid to complete course
[2016-12-06] MEDS: Amoxicillin PO (*) 500 MG CAP PO SCH ×2 (14:13→21:05)
--- NOTE | 2016-12-06 16:12 | PN ---
Subjective Date of Service: 12/06/16 Interval History: HOSPITALIST PROGRESS NOTE Patient seen and examined at bedside. He feels better today. Denies pain, dyspnea, tolerating diet well. Still lacks energy, but was able to walk 5 laps around the unit today. Stool is loose, but denies diarrhea. Family History: Unchanged from Admission Social History: Unchanged from Admission Past Medical History: Unchanged from Admission Objective Active Medications: Albuterol (Ventolin 2.5 Mg/3 Ml Neb.Malini*) 2.5 mg INH Q6H PRN PRN Reason: SOB/WHEEZING Last Admin: 12/01/16 10:53 Dose: 2.5 mg Amiodarone HCl (Cordarone Tab*) 200 mg PO BID [facility] Last Admin: 12/06/16 07:53 Dose: 200 mg Amoxicillin (Amoxicillin Po (*)) 500 mg PO TID [facility] Last Admin: 12/06/16 14:13 Dose: 500 mg Aspirin (Aspirin Ec Low Dose*) 81 mg PO DAILY [facility] Last Admin: 12/06/16 07:53 Dose: 81 mg Atorvastatin Calcium (Lipitor*) 40 mg PO 1700 [facility] Last Admin: 12/05/16 15:36 Dose: 40 mg Calcium Carbonate (Tums*) 500 mg PO Q4H PRN PRN Reason: INDIGESTION Heparin Sodium (Porcine) (Heparin Vial(*)) 5,000 units SUBCUT Q8HR [facility] Last Admin: 12/06/16 14:13 Dose: 5,000 units Lorazepam (Ativan Inj*) 0.5 mg IV PUSH Q4H PRN PRN Reason: ANXIETY Metoprolol Tartrate (Lopressor Tab*) 50 mg PO Q8HR [facility] Last Admin: 12/06/16 14:13 Dose: 50 mg Morphine Sulfate (Morphine Inj (Syringe)*) 2 mg IV Q4H PRN PRN Reason: PAIN Last Admin: 12/01/16 03:45 Dose: 2 mg Omeprazole (Prilosec Cap*) 20 mg PO DAILY [facility] Last Admin: 12/06/16 07:53 Dose: 20 mg Prochlorperazine Edisylate (Compazine Inj*) 5 mg IV Q6H PRN PRN Reason: NAUSEA/VOMITING Vital Signs 12/06/16 12:42 Temperature 97.9 F Pulse Rate 69 Respiratory 16 Rate Blood Pressure 143/74 (mmHg) O2 Sat by Pulse 99 Oximetry Oxygen Devices in Use Now: None Appearance: Pleasant elderly male lying in bed in NAD. Eyes: No Scleral Icterus Ears/Nose/Mouth/Throat: Mucous Membranes Moist Neck: Trachea Midline Respiratory: Symmetrical Chest Expansion and Respiratory Effort, Clear to Auscultation Cardiovascular: RRR - Normal S1 and S2 Abdominal: NL Sounds; No Tenderness; No Distention Extremities: No Edema Neurological: Alert and Oriented x 3, NL Muscle Strength and Tone Lines/Tubes/Other Access: Clean, Dry and Intact Peripheral IV Nutrition: Taking PO's Result Diagrams: 12/04/16 05:24 12/05/16 05:01 Assess/Plan/Problems-Billing Assessment: Mr Diggs is a 71 yo M with PMH of CAD, HTN, HLD, FAMILIA, hiatal hernia, who presented to the ER with c/o abdominal pain and was found to have multisystem organ failure in setting of septic shock secondary to E. Coli septicemia. - Patient Problems (1) E. coli septicemia Comment: - Source could be biliary vs ETEC. - Repeat blood cultures are negative. - ID input appreciated - will change to PO amoxicillin to complete treatment. (2) Shock Comment: - Patient had multisystem organ failure with acute renal failure, shock liver, encephalopathy, cardiac ischemia secondary to poor organ perfusion secondary to E coli septicemia/severe sepsis - Resolved. (3) Shock liver Comment: - Secondary to septic shock - continue to trend down. (4) NSTEMI (non-ST elevated myocardial infarction) Comment: - Troponin peaked at 16. Type II NSTEMI. - Dr. Paz input appreciated - if no improvement on EF, will consider cardiac cath. - Continue ASA, metoprolol and lipitor. (5) Ischemic cardiomyopathy Comment: - Ischemic vs non-ischemic CMP. - Patient has h/o CAD 12 years ago, but was asympatomatic prior to this admission, able to exercise with no symptoms. - Echo shows EF 35% - d/w Cardiology - for repeat echo tomorrow - if not trending up may need further w/u inpatient. (6) Afib Comment: - Had episode of Afib in ICU, requiring Amiodarone drip. - Plan to continue Amiodarone BID for 7 days, then titrate to once a day. - Remain in NSR. (7) Acute kidney failure Comment: - Likely ATN secondary to septic shock. - Renal function continues to improve. (8) FAMILIA (obstructive sleep apnea) Comment: - Continue CPAP. (9) DVT prophylaxis Comment: - SQ heparin. (10) Full code status Status and Disposition: Inpatient.
[2016-12-06] MEDS: Atorvastatin* 40 MG TAB PO SCH (17:22)
[2016-12-07 04:48] LABS: BUN/Creatinine Ratio 19.2 (8-20); C Reactive Protein 59.25 mg/L (< 5.00); Calcium 8.5 mg/dL (8.6-10.3); EGFR African American 61.2 (>60); EGFR Non-African American 47.6 (>60); Globulin 3.1 g/dL (2-4); Total Bilirubin 1.2 mg/dL (0.2-1.0); Total Protein 6.1 g/dL (6.4-8.9)
[2016-12-07 04:52] LABS: Hematocrit 37 % (42-52); Hemoglobin 12.2 g/dl (14.0-18.0); Mean Corpuscular HGB Conc 33 g/dl (31-36); Mean Corpuscular Hemoglobin 32 pg (27-31); Mean Corpuscular Volume 95 fL (80-94); Mean Platelet Volume 9 um3 (7.4-10.4); Red Blood Count 3.87 10^6/ul (4.0-5.4); Red Cell Distribution Width 14 % (10.5-15); White Blood Count 19.9 10^3/ul (3.5-10.8)
[2016-12-07 04:53] LABS: Add Diff/Slide Review? Slide Review Added; Comments Flag Yes
[2016-12-07] MEDS: Metoprolol Tartrate TAB* 25 MG PO SCH ×3 (05:39→21:23)
[2016-12-07] MEDS: Heparin VIAL(*) 5000 UNITS/ML VIAL (FIVE THOUSAND) SUBCUT SCH ×3 (05:40→21:25)
[2016-12-07] MEDS: Omeprazole CAP* 20 MG PO SCH (08:44)
[2016-12-07] MEDS: Amoxicillin PO (*) 500 MG CAP PO SCH ×3 (08:44→21:22)
[2016-12-07] MEDS: Aspirin EC Low Dose* 81 MG TAB.EC PO SCH (08:44)
[2016-12-07] MEDS: Amiodarone TAB* 200 MG PO SCH ×2 (08:44→21:22)
--- NOTE | 2016-12-07 11:03 | ECHO ---
Patient: ELYSE HANLEY [facility] Rec#: [id number] : 1945 Date: 12/07/2016 Age: 71y Height: 175 cm / 68.9 in Weight: 86 kg / 189.5 lbs Sex: M BSA: 2.02 Room#: 433 Admit Date#: 11/28/2016 Type: Inpatient Referring: Pro Lovett MD Reading: Toi Wing MD [employer]: Nisha Ware,RDCS,RDMS Transthoracic Echocardiogram Indication: Cardiomyopathy BP: 130/81 HR: 67 Rhythm: NSR Findings History: LIMITED STUDY. NSTEMI, septic shock, HTN, HLD Technical Comments: The study quality is good. Left Ventricle: The left ventricular chamber size is normal. Mild to moderate concentric left ventricular hypertrophy is observed. The estimated ejection fraction is 60-65%. Right Ventricle: The right ventricular chamber size and systolic function are within normal limits. The right ventricle wall thickness is mildly increased. Pericardium: A trivial pericardial effusion is visualized. Conclusions LIMITED STUDY FOR LV FUNCTION: The left ventricular chamber size is normal. Mild to moderate concentric left ventricular hypertrophy is observed. The estimated ejection fraction is 60-65%. No ffocal wall motion abnormalities are noted. The right ventricular chamber size and systolic function are within normal limits. The right ventricle wall thickness is mildly increased. A trivial pericardial effusion is visualized. Compared to 12/03/2016 there is continued improvement of his LV systolic function which is now normal.
--- NOTE | 2016-12-07 15:43 | PN ---
Subjective Date of Service: 12/07/16 Interval History: HOSPITALIST PROGRESS NOTE Patient seen and examined at bedside. He feels well today, in good spirits. Ambulating around unit with no chest pain or dyspnea. Tolerating diet and PO antibiotics well. Family History: Unchanged from Admission Social History: Unchanged from Admission Past Medical History: Unchanged from Admission Objective Active Medications: Albuterol (Ventolin 2.5 Mg/3 Ml Neb.Malini*) 2.5 mg INH Q6H PRN PRN Reason: SOB/WHEEZING Last Admin: 12/01/16 10:53 Dose: 2.5 mg Amiodarone HCl (Cordarone Tab*) 200 mg PO BID [facility] Last Admin: 12/07/16 08:44 Dose: 200 mg Amoxicillin (Amoxicillin Po (*)) 500 mg PO TID [facility] Last Admin: 12/07/16 14:04 Dose: 500 mg Aspirin (Aspirin Ec Low Dose*) 81 mg PO DAILY [facility] Last Admin: 12/07/16 08:44 Dose: 81 mg Atorvastatin Calcium (Lipitor*) 40 mg PO 1700 [facility] Last Admin: 12/06/16 17:22 Dose: 40 mg Calcium Carbonate (Tums*) 500 mg PO Q4H PRN PRN Reason: INDIGESTION Heparin Sodium (Porcine) (Heparin Vial(*)) 5,000 units SUBCUT Q8HR [facility] Last Admin: 12/07/16 14:04 Dose: 5,000 units Lorazepam (Ativan Inj*) 0.5 mg IV PUSH Q4H PRN PRN Reason: ANXIETY Metoprolol Tartrate (Lopressor Tab*) 50 mg PO Q8HR [facility] Last Admin: 12/07/16 14:04 Dose: 50 mg Morphine Sulfate (Morphine Inj (Syringe)*) 2 mg IV Q4H PRN PRN Reason: PAIN Last Admin: 12/01/16 03:45 Dose: 2 mg Omeprazole (Prilosec Cap*) 20 mg PO DAILY [facility] Last Admin: 12/07/16 08:44 Dose: 20 mg Prochlorperazine Edisylate (Compazine Inj*) 5 mg IV Q6H PRN PRN Reason: NAUSEA/VOMITING Vital Signs 12/07/16 12/07/16 12/07/16 08:00 08:54 11:25 Temperature 98.0 F Pulse Rate 68 73 Respiratory 16 17 20 Rate Blood Pressure 127/69 (mmHg) O2 Sat by Pulse 98 99 Oximetry Oxygen Devices in Use Now: None Appearance: Pleasant gentleman sitting up in a chair in NAD. Eyes: No Scleral Icterus Ears/Nose/Mouth/Throat: Mucous Membranes Moist Neck: Trachea Midline Respiratory: Symmetrical Chest Expansion and Respiratory Effort, Clear to Auscultation Cardiovascular: RRR - Normal S1 and S2 Abdominal: NL Sounds; No Tenderness; No Distention Extremities: No Edema Neurological: Alert and Oriented x 3, NL Muscle Strength and Tone Lines/Tubes/Other Access: Clean, Dry and Intact Peripheral IV Nutrition: Taking PO's Result Diagrams: 12/07/16 04:19 12/07/16 04:19 Assess/Plan/Problems-Billing Assessment: Mr Diggs is a 71 yo M with PMH of CAD, HTN, HLD, FAMILIA, hiatal hernia, who presented to the ER with c/o abdominal pain and was found to have multisystem organ failure in setting of septic shock secondary to E. Coli septicemia. - Patient Problems (1) E. coli septicemia Comment: - Source could be biliary vs ETEC. - Repeat blood cultures are negative. - ID input appreciated - continue PO amoxicillin to complete treatment. (2) Shock Comment: - Patient had multisystem organ failure with acute renal failure, shock liver, encephalopathy, cardiac ischemia secondary to poor organ perfusion secondary to E coli septicemia/severe sepsis - Resolved. (3) Shock liver Comment: - Secondary to septic shock - LFTs continue to trend down. (4) NSTEMI (non-ST elevated myocardial infarction) Comment: - Troponin peaked at 16. Type II NSTEMI. - Continue ASA, metoprolol and lipitor. - Follow up repeat echo. (5) Ischemic cardiomyopathy Comment: - Ischemic vs non-ischemic CMP. - Patient has h/o CAD 12 years ago, but was asympatomatic prior to this admission, able to exercise with no symptoms. - Echo shows EF 35% - d/w Cardiology - for repeat echo tomorrow - if not trending up may need further w/u inpatient. (6) Afib Comment: - Had episode of Afib in ICU, requiring Amiodarone drip. - Plan to continue Amiodarone BID for 7 days, then titrate to once a day. - Remains in NSR. (7) Acute kidney failure Comment: - Likely ATN secondary to septic shock. - Renal function continues to improve. (8) FAMILIA (obstructive sleep apnea) Comment: - Continue CPAP. (9) DVT prophylaxis Comment: - SQ heparin. (10) Full code status Status and Disposition: Inpatient. If he continues to improve, anticipate d/c in AM.
[2016-12-07] MEDS: Atorvastatin* 40 MG TAB PO SCH (17:06)
[2016-12-08 04:38] LABS: Hematocrit 35 % (42-52); Hemoglobin 11.6 g/dl (14.0-18.0); Mean Corpuscular HGB Conc 34 g/dl (31-36); Mean Corpuscular Hemoglobin 32 pg (27-31); Mean Corpuscular Volume 95 fL (80-94); Mean Platelet Volume 9 um3 (7.4-10.4); Red Blood Count 3.63 10^6/ul (4.0-5.4); Red Cell Distribution Width 14 % (10.5-15); White Blood Count 16.2 10^3/ul (3.5-10.8)
[2016-12-08 04:40] LABS: Add Diff/Slide Review? Slide Review Added; Comments Flag Yes
[2016-12-08 04:46] LABS: BUN/Creatinine Ratio 21.5 (8-20); Calcium 8.4 mg/dL (8.6-10.3); EGFR Non-African American 54.4 (>60); Globulin 2.9 g/dL (2-4); Potassium 4.5 mmol/L (3.5-5.0); Total Bilirubin 0.9 mg/dL (0.2-1.0); Total Protein 5.9 g/dL (6.4-8.9)
[2016-12-08] MEDS: Metoprolol Tartrate TAB* 25 MG PO SCH ×2 (06:04→13:38)
[2016-12-08] MEDS: Heparin VIAL(*) 5000 UNITS/ML VIAL (FIVE THOUSAND) SUBCUT SCH ×2 (06:05→13:39)
[2016-12-08] MEDS: Amoxicillin PO (*) 500 MG CAP PO SCH ×2 (09:14→13:38)
[2016-12-08] MEDS: Amiodarone TAB* 200 MG PO SCH (09:14)
[2016-12-08] MEDS: Aspirin EC Low Dose* 81 MG TAB.EC PO SCH (09:14)
[2016-12-08] MEDS: Omeprazole CAP* 20 MG PO SCH (09:14)
[2016-12-08 11:21] VITALS: BP 128/74
--- NOTE | 2016-12-08 15:46 | PN ---
Subjective Date of Service: 12/08/16 - CC: weak heart, afib. Interval History: The patient was seen with his . No CP/SOB/orthopnea or PND. No palpitations. The patient is anxious to get home. He stated he planned on returning to his cardiology group in [place] (has seen Dr. Sarabia). Medications Active Medications: Albuterol (Ventolin 2.5 Mg/3 Ml Neb.Malini*) 2.5 mg INH Q6H PRN PRN Reason: SOB/WHEEZING Last Admin: 12/01/16 10:53 Dose: 2.5 mg Amiodarone HCl (Cordarone Tab*) 200 mg PO BID [facility] Last Admin: 12/08/16 09:14 Dose: 200 mg Amoxicillin (Amoxicillin Po (*)) 500 mg PO TID [facility] Last Admin: 12/08/16 13:38 Dose: 500 mg Aspirin (Aspirin Ec Low Dose*) 81 mg PO DAILY [facility] Last Admin: 12/08/16 09:14 Dose: 81 mg Atorvastatin Calcium (Lipitor*) 40 mg PO 1700 [facility] Last Admin: 12/07/16 17:06 Dose: 40 mg Calcium Carbonate (Tums*) 500 mg PO Q4H PRN PRN Reason: INDIGESTION Heparin Sodium (Porcine) (Heparin Vial(*)) 5,000 units SUBCUT Q8HR [facility] Last Admin: 12/08/16 13:39 Dose: Not Given Lorazepam (Ativan Inj*) 0.5 mg IV PUSH Q4H PRN PRN Reason: ANXIETY Metoprolol Tartrate (Lopressor Tab*) 50 mg PO Q8HR [facility] Last Admin: 12/08/16 13:38 Dose: 50 mg Morphine Sulfate (Morphine Inj (Syringe)*) 2 mg IV Q4H PRN PRN Reason: PAIN Last Admin: 12/01/16 03:45 Dose: 2 mg Omeprazole (Prilosec Cap*) 20 mg PO DAILY [facility] Last Admin: 12/08/16 09:14 Dose: 20 mg Prochlorperazine Edisylate (Compazine Inj*) 5 mg IV Q6H PRN PRN Reason: NAUSEA/VOMITING Objective Vital Signs: Temp Pulse Resp BP Pulse Ox 98.7 F 72 17 128/74 99 12/08/16 11:12 12/08/16 11:12 12/08/16 12:10 12/08/16 11:12 12/08/16 11:12 Oxygen Devices in Use Now: None Appearance: fit appearing older gentleman, lying at 30 degrees, dressed, comfortable. Eyes: No Scleral Icterus, PERRLA Ears/Nose/Mouth/Throat: Clear Oropharnyx, Mucous Membranes Moist Neck: NL Appearance and Movements; NL JVP Respiratory: Symmetrical Chest Expansion and Respiratory Effort, Clear to Auscultation Cardiovascular: NL Sounds; No Murmurs; No JVD, RRR Abdominal: No Hepatosplenomegaly - mild distension from obeisity. Extremities: No Edema Skin: No Rash or Ulcers Neurological: Alert and Oriented x 3 Laboratory Results: 12/08/16 04:15 12/08/16 04:15 INR (Anticoag Therapy) 1.21 (0.89-1.11) H 12/01/16 05:30 Total Bilirubin 0.90 mg/dL (0.2-1.0) 12/08/16 04:15 Direct Bilirubin 1.00 mg/dL (0.03-0.18) H 12/02/16 06:33 Indirect Bilirubin 1.1 mg/dL (0.3-1.0) H 12/02/16 06:33 AST 36 U/L (13-39) 12/08/16 04:15 ALT 54 U/L (7-52) H 12/08/16 04:15 Alkaline Phosphatase 227 U/L (34-104) H 12/08/16 04:15 Total Protein 5.9 g/dL (6.4-8.9) L 12/08/16 04:15 Albumin 3.0 g/dL (3.2-5.2) L 12/08/16 04:15 Globulin 2.9 g/dL (2-4) 12/08/16 04:15 Albumin/Globulin Ratio 1.0 (1-3) 12/08/16 04:15 Triglycerides 65 mg/dL 11/30/16 05:58 Cholesterol 69 mg/dL 11/30/16 05:58 LDL Cholesterol 21 mg/dL 11/30/16 05:58 HDL Cholesterol 34.7 mg/dL 11/30/16 05:58 11/28/16 11/28/16 11/29/16 17:30 20:30 00:45 Troponin I 0.19 H* 0.19 H* 0.25 H* 11/29/16 11/29/16 11/29/16 04:55 10:27 16:34 Troponin I 0.44 H* 0.73 H* 6.97 H* 11/29/16 11/30/16 12/01/16 17:17 05:58 05:30 Troponin I 7.00 H* 12.86 H* 16.60 H* 12/02/16 06:33 Troponin I 6.43 H* Diagnostic Imaging: Echo 12/07/16: EF 60-65% (improved from 35%) EKG Data: NSR Assessment/Plan 71 yo admitted with septic shock (E. coli), multisystem compromise including transient a. fib, severe cardiomyopathy and bump in trops to 6. The patient's EF has recovered and he is maintaining NSR with amiodarone. Clinically he looks well. CM: Recovered. Likely from sepsis, differential of CAD. I agree with plans for non urgent outpatient stress. Continue Toprol. Healthy lifestyle, continue statin for now. Afib, resolved. I agree with amiodarone 200 mg/day to 100 mg/day. I discussed floor molder side effects and educated the patient and that these are very rare short term and to continue amiodarone until his f/u visit with cardiology. The patient was advised to avoid EtOH for now. CPAP use all the time advised, pt educated about FAMILIA and association with AF. Follow up with cardiology needed either Gregory or Gopi.
--- NOTE | 2016-12-09 18:22 | DS ---
CC: Dr. Perez; Dr. Gino Meredith, [place], [place], phone# [phone]; Dr. Zachary Sarabia, [place], [place], phone# [phone] * DISCHARGE SUMMARY: DATE OF ADMISSION: 11/28/16 DATE OF DISCHARGE: 12/08/16 PRIMARY CARE PROVIDER: Dr. Gino Meredith. MANUFACTURING ENGINEER SUPERVISOR: Dr. Zachary Sarabia. HOSPITAL COURSE: Mr. Diggs is a 71-year-old male with a past medical history of coronary artery disease, hypertension, hyperlipidemia, obstructive sleep apnea , hiatal hernia, who was [place] in the area and presented to the emergency room with complaints of abdominal pain that had started a day prior to admission. For more details about his presentation, I refer you to his history and physical, but in summary, during his interview in the emergency room , the patient became confused, hypotensive, and was emergently transferred to the intensive care unit for further care. His laboratory test on admission suggested severe sepsis and the source initially was felt to be biliary, as he had total bilirubin of 4.4 with elevation of AST and ALT. Gallbladder ultrasound showed sludge in the gallbladder and multiple renal cysts. CT of the abdomen and pelvis showed peripancreatic inflammatory change suggestive of early pancreatitis in the correct clinical setting, trace bilateral pleural effusions, multiple renal cysts. Please note that, at that point, his lipase was 9671. He was admitted to the intensive care unit under the impression of septic shock likely associated with cholangitis/pancreatitis. He was started on aggressive fluid resuscitation and actually required pressors to maintain an acceptable MAP. He was treated with Zosyn and required Levophed. His 4 initial blood cultures grew E. coli. He was seen in consultation by Infectious Disease (Dr. Coyne) and his impression was the patient has septic shock secondary to E. coli bacteremia in the setting of transaminitis, increased lipase, pancreatic stranding, abdominal pain, increased bilirubin, and he thought maybe a stone below the pancreatic and common bile duct was a consideration. At that point, the patient's care was transferred to the critical care physician , Dr. Hope. At that point, he had multiple system organ failure with acute pancreatitis, acute cholecystitis, acute renal failure, encephalopathy, acute hypoxemic respiratory failure, stress cardiomyopathy, all secondary to septic shock, secondary to E. coli. The patient was seen in consultation by Gastroenterology (Dr. Tim) and he thought the patient presented with pancreatitis and hepatitis, but he did not feel it was related to choledocholithiasis, cholecystitis, or gallstones that had passed since his alk phos was normal and his CBD measured only 6 mm. His recommendation was for an MRCP that showed no evidence of biliary duct dilatation, no filling defects in the common bile duct. The patient had since an increase of his troponin to a peak of 16.6. He also developed atrial fibrillation while in the intensive care unit. He had an initial transthoracic echocardiogram that showed global hypokinesis of the left ventricle with minor regional variation, estimated ejection fraction of 30% to 35%. This was repeated on 12/03/16 and it had not shown significant change. He still had moderate global hypokinesis. Ejection fraction was 35% to 40%. He was seen in consultation by Cardiology (Dr. Paz) and his recommendation for atrial fibrillation was amio drip that was later on transitioned to p.o. amiodarone. The patient's atrial fibrillation resolved and he remained in normal sinus rhythm. Initially, the plan was to pursue further ischemic workup as inpatient including possible stress test or even cardiac cath if the patient's ejection fraction did not improve, but a repeat echocardiogram on 12/07/16 showed ejection fraction of 60% to 65% with no focal wall motion abnormalities. So, the impression was the patient probably had stress cardiomyopathy secondary to his severe infection. He was seen in followup by Cardiology (Dr. Page) and she agreed that this was likely secondary to sepsis, but with his history of CAD, this was also in the differential. She agreed with plan for nonurgent outpatient stress test. She recommended to continue his metoprolol, statin, and reinforced the importance of a healthy lifestyle. 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 He was also advised to avoid alcohol until his PCP clears him to have small amounts of alcoholic beverages again. She also reinforced the importance of CPAP as noncompliance with it may precipitate another episode of atrial fibrillation. This episode was really short provoked. So, anticoagulation is not indicated at this time, but of course if the episodes recur in the future, further evaluation to decide about anticoagulation should be pursued. The patient had progressive improvement of his symptoms and laboratory markers, blood cultures became negative, leukocytosis is trending down. Renal function, liver function tests are all trending down and getting close to normality. The etiology of his E. coli septicemia at this point is still unclear. As stated before, on presentation, it appeared that he probably had passed the stone causing acute pancreatitis and cholangitis, but this was not confirmed with imaging. In any case, when the patient is thoroughly recovered, I believe a surgical evaluation to decide if a cholecystectomy is indicated should be pursued as another episode like this in the future would be catastrophic. Another possibility would be enterotoxigenic E. coli, but as stated above, this was also not confirmed with further testing as his stool culture was negative. In any case, the patient will continue treatment with amoxicillin to complete 2 weeks of treatment. He is planning to stay in the area for now, so he was advised to have a repeat CBC and CMP next week on 12/15/16 and he has an appointment scheduled on and he has an appointment to see Dr. Perez here in [place] on 12/16/16. After that he will decide if he will return home and at that point, he will follow up with his primary care provider, Dr. Meredith and later on, he also needs to follow up with Dr. Sarabia to decide about the timing for his stress test. The patient received extensive education about his diagnosis and he was advised to avoid alcohol and be compliant with all his medications. His medication list looks different now as his benazepril was discontinued for now due to his acute renal failure, but later on as his renal function continues to be improved and his blood pressure probably trends up, it could be restarted. His metoprolol was decreased to 50 mg p.o. q.8, but he will probably need a higher dose over time. His atorvastatin was also reduced to 40 mg daily, but as his liver function tests continue to improve, maybe he could return to his full dose of 80 mg as he was doing in the past. The patient is medically stable for discharge at this time. PHYSICAL EXAMINATION: Vital Signs: Temperature 98.7, heart rate is 71, respiratory rate is 18, oxygen saturation is 99% on room air, blood pressure is 128/74. General: The patient is a pleasant elderly male sitting up in the bed , in no acute distress. CVS: Normal S1, S2. Regular rate and rhythm. Chest: Breath sounds present bilaterally with no added sounds. Abdomen is soft, nontender, nondistended. Bowel sounds are present. Extremities: No edema. Neuro: He is alert, awake, and oriented x3. He is able to move all 4 extremities. DIET: Heart-healthy diet. ACTIVITY: As tolerated. The patient was advised to avoid excessive exertion for now. DISPOSITION: To home. STATUS WHILE IN THE HOSPITAL: Inpatient. DISCHARGE DIAGNOSES: 1. Septic shock. 2. Multisystem organ failure. 3. Encephalopathy. 4. Stress cardiomyopathy. 5. Hepatitis/shock liver. 6. Acute kidney injury secondary to acute tubular necrosis. 7. Leukocytosis. 8. Hypokalemia. 9. Acute pancreatitis (biliary versus alcohol induced). 10. Escherichia coli septicemia. 11. Stress cardiomyopathy/non-ST elevation myocardial infarction. 12. Relative adrenal insufficiency. MEDICATION LIST: 1. Aspirin 81 mg p.o. daily. 2. Arginine 1000 mg p.o. b.i.d. 3. Amlodipine 5 mg p.o. daily. 4. CoQ10 200 mg p.o. b.i.d. 5. Calcium 1000 mg p.o. b.i.d. 6. Omeprazole 20 mg p.o. daily. 7. Cyanocobalamin 2000 units p.o. daily. 8. Metoprolol tartrate 50 mg p.o. q.8 hours. 9. Atorvastatin 40 mg p.o. daily. 10. Amoxicillin 500 mg p.o. t.i.d. for 6 more days. 11. Amiodarone 200 mg p.o. daily for 7 days, then 100 mg p.o. daily until followup with Cardiology. Please keep in mind this is a summarized version of this patient's prolonged and very complex hospital stay. If you need more information, please feel free to call me at [phone] or please obtain the full medical records. TIME SPENT: Approximately 50 minutes was spent to complete this discharge. [id number]/CPS #: [id number] SHELIA
== END 2016-12-08 16:05 | disposition home or self-care (01) | DRG 871 ==
LOC: ED 13:08 → ICU 15:18 → MEDTELE 12-04 12:23
PROVIDERS: ADMIT Internal Medicine; ATTEND Internal Medicine
PROC: 5A09557 Assistance with Respiratory Ventilation, Greater than 96 Consecutive Hours, Continuous Positive Airway Pressure (ICD-10-PCS; principal; 2016-11-28)
PROC: B544ZZA Ultrasonography of Left Jugular Veins, Guidance (ICD-10-PCS; 2016-11-28)
PROC: 05HN33Z Insertion of Infusion Device into Left Internal Jugular Vein, Percutaneous Approach (ICD-10-PCS; 2016-11-28)
PROC: 3E033XZ Introduction of Vasopressor into Peripheral Vein, Percutaneous Approach (ICD-10-PCS; 2016-11-28)
DX: A41.51 Sepsis due to Escherichia coli [E. coli] (principal); G93.41 Metabolic encephalopathy; I21.4 Non-ST elevation (NSTEMI) myocardial infarction; D65 Disseminated intravascular coagulation [defibrination syndrome]; J96.01 Acute respiratory failure with hypoxia; K72.00 Acute and subacute hepatic failure without coma; K83.0 Cholangitis; R65.21 Severe sepsis with septic shock; N17.0 Acute kidney failure with tubular necrosis; K85.20 Alcohol induced acute pancreatitis without necrosis or infection; K81.0 Acute cholecystitis; E27.40 Unspecified adrenocortical insufficiency; E87.2 Acidosis; K21.9 Gastro-esophageal reflux disease without esophagitis; E78.5 Hyperlipidemia, unspecified; I10 Essential (primary) hypertension; E78.00 Pure hypercholesterolemia, unspecified; K44.9 Diaphragmatic hernia without obstruction or gangrene; I25.10 Atherosclerotic heart disease of native coronary artery without angina pectoris; G47.33 Obstructive sleep apnea (adult) (pediatric); N28.1 Cyst of kidney, acquired; E87.6 Hypokalemia; E87.8 Other disorders of electrolyte and fluid balance, not elsewhere classified; I48.91 Unspecified atrial fibrillation; I08.1 Rheumatic disorders of both mitral and tricuspid valves; F10.20 Alcohol dependence, uncomplicated; Y90.9 Presence of alcohol in blood, level not specified; E83.39 Other disorders of phosphorus metabolism; I25.5 Ischemic cardiomyopathy; Z82.49 Family history of ischemic heart disease and other diseases of the circulatory system; Z80.8 Family history of malignant neoplasm of other organs or systems; Z79.82 Long term (current) use of aspirin
CPT/HCPCS: 36415; 71010; 74176; 74181; 76376; 76705; 80048; 80053; 80061; 80076; 81003; 81015; 82140; 82803; 83605; 83630; 83690; 83735; 84100; 84484; 85025; 85060; 85610; 86140; 87040; 87045; 87046; 87077; 87186; 87205; 87641; 87899; 93005; 93306; 93308; 94640; 94660; 94669; 94760; A9270-GY; C8924; C8929; J0282; J0696; J0780; J1644; J1720; J1885; J1940; J2270; J2405; J2543; J3480; J7512

== ENCOUNTER 2019-02-18 17:11 | Emergency (ER) | payer MEDICARE ==
--- OUTSIDE RECORDS SUMMARY | 2019-02-18 17:22 | XMS REPORT | Continuity of Care Document ---
:1945 External Reference #:[id number] Author Name Gino Meredith MD (transmitted by agent of provider Helen Crowell) Address [address] [place] [address] Care Team Providers Name Role Phone Gino Meredith M.D. - Family Care Team Information Sports Development Officer [phone] Medicine Problems Active Problems Provider Date Mixed hyperlipidemia Gino Meredith MD Onset: 02/06/2001 Essential hypertension Gino Meredith MD Onset: 03/25/2015 Social History Type Date Description Comments Sex Unknown Tobacco Use Start: Unknown Never Smoked Cigarettes Tobacco Use Start: Unknown Never Smoked Cigarettes ETOH Use Consumes 2 beers per day ETOH Use Consumes 1 glass of wine per day Recreational Drug Use Never Used Drugs Tobacco Use Start: Unknown Patient has never smoked Smoking Status Reviewed: 10/02/18 Patient has never smoked Seat Belt/Car Seat yes Seat Belt/Car Seat Always uses seat belt Allergies, Adverse Reactions, Alerts Description No Known Drug Allergies Medications Active Medications SIG Qnty Indications Ordering Provider Date Omeprazole 1 by mouth every 90caps K85.90 Gino Meredith MD 04/27/2018 20mg day Capsules Atorvastatin Calcium 1 by mouth every 90tabs E78.2 Gino Meredith MD 02/17 day 40mg Tablets Flonase Allergy 2 sprays in each 9.900ml Gino Meredith MD 10/14/2016 Relief nostril every 50mcg/Act day Suspension Co Q10 1 by mouth every Gino Meredith MD 03/30/2016 200mg Capsules day twice per day [id number] 2 by mouth per Gino Meredith MD 10/07/2015 500mg day Capsules Amlodipine Besylate 1 by mouth every 90tabs Gino Meredith MD 03/14/2014 5mg day Tablets Calcium 500+D 2 by mouth every OTC Gino Meredith MD 10/08/2013 day [id number] Tablets Vitamin B-12 1 by mouth bid Gino Meredith MD 10/08/2013 Tablets Sub Metoprolol Succinate 1 by mouth every 90tabs I10 Aguila H. 09/28/2012 ER day Tunick, DO 200mg Tablets ER 24HR Aspirin 1 po qd Gino Meredith MD 03/18/2010 81mg Chewtabs Benazepril HCL 1 by mouth every 90tabs Ayakov 10mg day MD Dee Tablets Immunizations CPT Code Status Date Vaccine Lot # [id number] Given 01/12/2018 Flu/iiv3 Fluzone, High-Dose Age 65 And Older [id number] 69787 Given 02/17/2017 Flu/iiv3 Fluzone, High-Dose Age 65 And Older [id number] 41613 Given 03/30/2016 Flu/iiv3 Fluzone, High-Dose Age 65 And Older [id number] 55694 Given 11/06/2015 Zoster( Zostavax ) 08008 Given 03/25/2015 Flu/Fluzone Iiv4 3Yrs And Older [id number] 57192 Given 11/12/2014 Tetanus/diphtheria Toxoid (Td) [id number] 55642 Given 09/27/2014 Prevnar (Pneumococcal 13/V C.Vaccine) [id number] 26508 Given 02/21/2014 Flu/Fluzone Iiv4 3Yrs And Older [id number] Q2037 Given 05/15/2013 Fluvirin Iiv3 Records Only [id number] Q2037 Given 05/08/2012 Fluvirin Iiv3 Records Only [id number] Q2038 Given 02/02/2011 Flu/Trivalent MDV Medicare Records Only [id number] 64297 Given 03/18/2010 Pneumovax [id number] 94801 Given 03/18/2010 Fluvirin/Trivalent Iiv3 4Yr & Older [id number] 15121 Given 05/06/2009 H1N1 Influenza Virus Vaccine [id number] 82141 Given 05/06/2009 H1N1 Administration (Records Only) 06204 Given 03/11/2009 Tetanus/diphtheria Toxoid (Td) [id number] 68904 Given 02/05/2009 Fluvirin/Trivalent Iiv3 4Yr & Older [id number] 37689 Given 04/15/2008 Fluvirin/Trivalent Iiv3 4Yr & Older [id number] 42495 Given 05/06/2006 Fluvirin/Trivalent Iiv3 4Yr & Older 44596 Given 03/22/2002 Fluvirin/Trivalent Iiv3 4Yr & Older Vital Signs Date Vital Result Comment 10/02/2018 4:01pm Weight 182.12 lb Height 68.25 inches 5'8.25" BP Systolic 146 mmHg BP Diastolic 96 mmHg BP Systolic Recheck 148 mmHg BP Diastolic Recheck 84 mmHg Heart Rate 64 /min BMI (Body Mass Index) 27.5 kg/m2 Z68.27 A, 27.0-27.9 04/27/2018 9:11am Weight 179.00 lb Height 68.25 inches 5'8.25" BP Systolic 110 mmHg BP Diastolic 80 mmHg Heart Rate 60 /min BMI (Body Mass Index) 27.0 kg/m2 Z68.27 A, 27.0-27.9 Results Test Date Facility Test Result H/L Range Note CMP 09/28/2018 [facility] Sodium 144 mmol/L 136 - 145 [address] [place] [address] [phone] Potassium 4.3 mmol/L 3.5 - 5.1 Chloride 109 mmol/L High 98 - 107 A/G Ratio 1.9 calc Glucose 91 mg/dL 83 - 105 Bun 24 mg/dL 8 - 26 Creatinine 1.3 mg/dL 0.7 - 1.3 BUN/Creat Ratio 19.2 calc Total Protein 6.7 g/dL 6.4 - 8.3 Albumin 4.4 g/dL 3.5 - 5.0 Anion Gap 7.3 Alk. Phosphatase 88 U/L 40 - 150 Alt 25 U/L 0 - 55 Ast 23 U/L 5 - 34 Total Bilirubin 0.90 mg/dL 0.20 - 1.20 gfr (gfr-ca) >60 ml/min/1.73m >60 gfr (gfr-aa) >60 ml/min/1.73m >60 C02 32 mmol/L 23 - 32 Calcium 9.8 mg/dL 9.0 - 10.5 Globulin 2.3 g/dL Lipid 09/28/2018 [facility] Cholesterol 177 mg/dL <[address] [place] [address] [phone] HDL Cholesterol 52 mg/dL 40 - 60 HDL Risk Factor 3.4 calc 1 LDL (Calculated) 106 calc 0 - 129 Triglycerides 93 mg/dL 0 - 150 VLDL Cholesterol 19 calc 1 CHD RISK FACTOR VS CHOLESTEROL/HDL RATIO RELATIVE TOTAL CHOL/HDL RATIO RISK FOR CHD MALE FEMALE [address] CHD 3.3 3.3 AVERAGE 4.9 4.4 2 X AVERAGE 9.6 7.0 3 X AVERAGE 24.0 11.0 CHD RISK FACTOR VS CHOLESTEROL/HDL RATIO RELATIVE TOTAL CHOL/HDL RATIO RISK FOR CHD MALE FEMALE [address] CHD 3.3 3.3 AVERAGE 4.9 4.4 2 X AVERAGE 9.6 7.0 3 X AVERAGE 24.0 11.0 Procedures Date Code Description Status 04/22/2010 [id number] Colonoscopy Completed Medical Devices Description No Information Available Encounters Type Date Location Provider Dx Diagnosis Office Visit 10/02/2018 [facility] Gino Meredith, I10 Essential ( primary) 3:40p [facility] Negrita BERNAL hypertension K85.00 Idiopathic acute pancreatitis without necrosis or infection I12.9 Hypertensive chronic kidney disease w stg 1-4/unsp chr kdny E78.2 Mixed hyperlipidemia N18.3 Chronic kidney disease, stage 3 (moderate) G47.33 Obstructive sleep apnea (adult) (pediatric) D48.5 Neoplasm of uncertain behavior of skin Z68.27 Body mass index (BMI) 27.0-27.9, adult Assessments Date Code Description Provider 12/11/2018 E78.2 Mixed hyperlipidemia Gino Meredith MD 10/02/2018 I10 Essential (primary) hypertension Gino Meredith MD 10/02/2018 K85.00 Idiopathic acute pancreatitis without necrosis or Gino Meredith MD infection 10/02/2018 I12.9 Hypertensive chronic kidney disease with stage 1 Gino Lassiter MD through sta 10/02/2018 E78.2 Mixed hyperlipidemia Gino Meredith MD 10/02/2018 N18.3 Chronic kidney disease, stage 3 (moderate) Gino Meredith MD 10/02/2018 G47.33 Obstructive sleep apnea (adult) (pediatric) Gino Meredith MD 10/02/2018 D48.5 Neoplasm of uncertain behavior of skin Gino Meredith MD 10/02/2018 Z68.27 Body mass index (BMI) 27.0-27.9, adult Gino Meredith MD 09/28/2018 E78.2 Mixed hyperlipidemia Gino Meredith MD 09/28/2018 E78.2 Mixed hyperlipidemia Laboratory Plan of Treatment No Information Available Functional Status Description No Information Available Mental Status Description No Information Available Referrals Refer to Dr Reason for Referral Status Appt Date Aki Sin M.D. Closed [facility] [address] [address] [phone] Cecile Allreden Closed [address] [place] [address] [phone]
[2019-02-18] MEDS ORDERED: DOXYcycline CAP(*) 100 MG PO ONE (18:30)
--- NOTE | 2019-02-18 18:32 | ED ---
Bite Injury/Animal - HPI Summary HPI Summary: 74-year-old male presents a tick bite to his right side of neck pain. Unsure how long the tick was there. tried to remove tick with dorothy. Has history of high blood pressure. no other symptoms. - History of Current Complaint Chief Complaint: EDAnimalBite Stated Complaint: TICK ON NECK PER PT Time Seen by Provider: 02/18/19 18:18 Pain Intensity: 0 - Allergies/Home Medications Allergies/Adverse Reactions: Allergies Allergy/AdvReac Type Severity Reaction Status Date / Time No Known Allergies Allergy Verified 02/18/19 17:17 PMH/Surg Hx/FS Hx/Imm Hx Endocrine/Hematology History: Denies: Hx Anticoagulant Therapy Cardiovascular History: Reports: Hx Hypercholesterolemia, Hx Hypertension Denies: Hx Pacemaker/ICD Respiratory History: Reports: Hx Sleep Apnea GI History: Reports: Hx Gastroesophageal Reflux Disease, Hx Hiatal Hernia Comment Only: Other GI Disorders - pancreatitis this admission Sensory History: Denies: Hx Contacts or Glasses, Hx Hearing Aid Opthamlomology History: Denies: Hx Contacts or Glasses Psychiatric History: Denies: Hx Panic Disorder - Surgical History Surgery Procedure, Year, and Place: Appendectomy Infectious Disease History: No Infectious Disease History: Denies: Traveled Outside the [place] in Last 30 Days - Family History Known Family History: Positive: Hypertension, Other - aneurysm - aorta (father @ age 72), HLD, [place] Negative: Cardiac Disease, Diabetes - Social History Alcohol Use: Daily Alcohol Amount: 2 drinks per day Hx Substance Use: No Substance Use Type: Reports: None Hx Tobacco Use: No Smoking Status (MU): Never Smoked Tobacco Review of Systems Negative: Fever Negative: Chest Pain Negative: Shortness Of Breath Positive: Other - tick bite neck All Other Systems Reviewed And Are Negative: Yes Physical Exam Triage Information Reviewed: Yes Vital Signs On Initial Exam: Initial Vitals Temp Pulse Resp BP Pulse Ox 98.1 F 65 16 187/102 100 02/18/19 17:14 02/18/19 17:14 02/18/19 17:14 02/18/19 17:14 02/18/19 17:14 Vital Signs Reviewed: Yes Appearance: Positive: Well-Appearing Skin: Positive: Warm, Dry, Other - tick to right side of neck Head/Face: Positive: Normal Head/Face Inspection Eyes: Positive: Normal, Conjunctiva Clear ENT: Positive: Pharynx normal Respiratory/Lung Sounds: Positive: Clear to Auscultation, Breath Sounds Present Cardiovascular: Positive: Normal, RRR Musculoskeletal: Positive: Normal Neurological: Positive: Normal Psychiatric: Positive: Normal Diagnostics - Vital Signs Vital Signs Temp Pulse Resp BP Pulse Ox 02/18/19 17:14 98.1 F 65 16 187/102 100 - Laboratory Lab Statement: Any lab studies that have been ordered have been reviewed, and results considered in the medical decision making process. Bite Injury Course/Dx - Course Course Of Treatment: 74-year-old male presents a tick bite to his right side of neck pain. Unsure how long the tick was there. tried to remove tick with dorothy. Has history of high blood pressure. no other symptoms. On exam tick present on right neck. removed tick with tick twister. We'll give prophylactic dose of doxycyline. Patient understands and agrees plan. - Diagnoses Differential Diagnosis/HQI/PQRI: Positive: Cellulitis, Other - tick, lyme Provider Diagnosis: Tick bite of neck Discharge ED - Sign-Out/Discharge Documenting (check all that apply): Patient Departure Patient Received Moderate/Deep Sedation with Procedure: No - Discharge Plan Condition: Good Disposition: HOME Patient Education Materials: Tick Bite (ED) Referrals: No Primary Care Phys,NOPCP [Primary Care Provider] - Additional Instructions: You have been prophylactically treated for Lyme disease Return to ED if develop any rash or signs of infection - Billing Disposition and Condition Condition: GOOD Disposition: Home
[2019-02-18 18:44] VITALS: BP 178/90
== END 2019-02-18 18:41 | disposition home or self-care (01) ==
LOC: ED 17:11
DX: S10.96XA Insect bite of unspecified part of neck, initial encounter (principal); W57.XXXA Bitten or stung by nonvenomous insect and other nonvenomous arthropods, initial encounter; Y92.9 Unspecified place or not applicable; E78.00 Pure hypercholesterolemia, unspecified; I10 Essential (primary) hypertension; K21.9 Gastro-esophageal reflux disease without esophagitis; Z79.82 Long term (current) use of aspirin; Z79.899 Other long term (current) drug therapy
CPT/HCPCS: 99282; A9270-GY